=== PATIENT | male | born 1950 | race Caucasian/White ===

== ENCOUNTER 2021-10-08 11:54 | Inpatient (IN) ==
--- NOTE | 2021-10-08 12:17 | Emergency Department Note ---
Impression & Plan Cavitary pneumonia, Hyponatremia, Elevated troponin, Bronchiectasis, Asthma ED Provider Note NAME: PIETRO KUHN AGE: 71 SEX: M : 1950 ARRIVES VIA: Walk-In INFORMANT: Patient, ED PROVIDER(S): Kurt Arnett MD Chief Complaint: Shortness of breath, weakness, weight loss HPI: Patient does present with the above symptoms. The patient has had ongoing shortness of breath and weight loss. The patient is lost approximately 30 pounds in the last month. The patient has had 2 admissions at [facility] without significant improvement in symptoms. Patient was told that he may have an element of TB but does have a known history of lung disease. Patient denies any fevers or chills but has had productive cough. Patient describes the sputum as green-white. No recent incarceration or travel. Patient is vaccinated for COVID but not the flu. Patient was most recently to [facility] on October 03. Reportedly had right upper lobe pneumonia and was admitted from September 21 to the as well with associated hyponatremia. The patient was treated and discharged on Omnicef and doxycycline. Patient does have a known history of bronchiectasis and asthma. Patient did have a CT PE protocol completed which showed cavitary right upper lobe infiltrate. Patient denies any bloody cough or leg swelling. The patient does complain of HARRIS but no orthopnea. Patient did have negative viral panel as well. Patient has been trying to take his [id number] medications in addition to prescription medications but without significant improvement in symptoms. Patient states he was not told about any known history of malignancy. Patient denies any thyroid issues. The patient has been trying to hydrate as well as drink protein shakes but has not resulted in weight gain. ROS: See HPI for pertinent positives and negatives. A total of 10 systems were reviewed and otherwise negative. Past medical history: See below Surgical history: See below Social history: See below Physical Exam: GENERAL: Thin in appearance,NAD, wearing a mask, non-toxic. EYE EXAM: Normal conjunctiva. PERRL, no anisocoria and EOM's grossly intact w/o pain. NECK: Supple, no nuchal rigidity, no adenopathy, non-tender. No signs of meningismus. LUNGS: Rhonchi to the right chest, wheezing noted. Normal chest wall mechanics. HEART: NSR, no MRG. ABDOMEN: Abdomen soft, non-tender, normo-active bowel sounds, no masses, no rebound or guarding. BACK: No CVA TTP. SKIN: No rashes and no bruising. UPPER EXTREMITIES: Upper extremities are grossly normal. LOWER EXTREMITIES: Grossly normal, no edema. Negative Homans' sign bilaterally. NEURO EXAM: A&O x3, cranial nerves II-XII grossly intact, normal speech, moves all 4 extremities on command w/o issue. Differential diagnoses: Reactive airway disease, pneumonia, pneumothorax, COPD, CHF, infections, cardiac ischemia, pulmonary embolism, musculoskeletal, gas trointestinal, as well as other pathologies. Course: Patient was seen and evaluated the bedside. Full history physical exam was performed. EKG interpreted by me Sinus, rate of 94, normal intervals, left axis deviation, no obvious ST changes. Imaging Studies: See Below Cardiac monitoring: An order was placed for continuous cardiac monitoring. The monitor shows a rate of 92 with sinus rhythm. MDM: Patient was seen due to concern for weight loss and shortness of breath. The patient has had fairly extensive work-up for a cavitary lesion. Blood work today shows a normal white count with mild anemia hemoglobin 11.2. Thrombocytosis noted at 755. Patient does have hyponatremia at 125. Kidney function is unremarkable. Initial troponin detectable but the patient denies any chest pains. EKG with no obvious acute changes. The patient was ordered Zosyn after discussion with pharmacy. Nasal MRSA screen screen ordered along with COVID test. These are both negative. I did speak with the on-call hospitalist Evon Love PA-C and the patient was admitted to the medicine service by Dr. Stubbs Past Med/Surg History Medical History Asthma Barretts esophagus Bronchiectasis Cavitary pneumonia Generalized anxiety disorder Severe protein-energy malnutrition Surgical History H/O cataract extraction History of tonsillectomy Family History Denies family history of Lung disease Cancer Stroke Social History Smoking Status: Former smoker packs per day: 1.5; Years Smoked: 30; Hx Alcohol Use: Yes Alcohol type: beer Alcohol Intake Frequency: 2-3 x/Week Hx Substance Use: No Feels Safe at Home: Yes Allergies Allergies Allergy/AdvReac Type Severity Reaction Status Date / Time No Known Allergies Allergy Unverified 10/08/21 18:40 Home Meds Home Medications Medication Instructions Recorded Confirmed amoxicillin 875 mg-potassium 1 tab PO BID 10/08/21 10/08/21 clavulanate 125 mg tablet buspirone 7.5 mg tablet 7.5 mg PO BID 10/08/21 10/08/21 cyanocobalamin (vitamin B-12) 1,000 mcg PO DAILY 10/08/21 10/08/21 1,000 mcg tablet (Vitamin B-12) ferrous sulfate 325 mg (65 mg 325 mg PO DAILY 10/08/21 10/08/21 iron) tablet fluticasone furoate 200 1 inh INHALATION DAILY 10/08/21 10/08/21 mcg-vilanterol 25 mcg/dose inhalation powder (Breo Ellipta) magnesium 100 mg tablet 100 mg PO DAILY 10/08/21 10/08/21 omeprazole 20 mg capsule,delayed 20 mg PO DAILY 10/08/21 10/08/21 release potassium chloride 10 mEq 20 meq PO DAILY 10/08/21 10/08/21 tablet,extended release(part/cryst) (Klor-Con M) thiamine HCl (vitamin B1) 100 mg 100 mg PO DAILY 10/08/21 10/08/21 tablet urea 15 gram oral powder packet 1 packet PO BID 10/08/21 10/08/21 (Ure-Na) Results & Data (ED) Vital Signs Vital Signs - 24 hr 10/08/21 12:01 10/08/21 12:30 10/08/21 12:36 Temperature 36.6 C Temperature Source Temporal Artery Scan Pulse Rate 102 H 91 H Pulse Rate [Left Apical] Pulse Rhythm [Left Apical] Pulse Strength [Left Apical] Respiratory Rate 18 Respiratory Effort / Characteristics Non-Labored Non-Labored Spontaneous Respiratory Depth Normal Normal Respiratory Pattern Regular Blood Pressure 94/67 L Blood Pressure [Left Arm] Blood Pressure Mean 76 Blood Pressure Mean [Left Arm] Blood Pressure Position [Left Arm] Pulse Oximetry 97 95 Oxygen Delivery Method Room Air Room Air Sepsis Recent Fever Within 48 Hours No Sepsis New/Unexplained Change in Mental Status No Sepsis Action Taken by Nursing No Action Required 10/08/21 13:00 10/08/21 14:30 Temperature Temperature Source Pulse Rate 93 H Pulse Rate [Left Apical] 95 H Pulse Rhythm [Left Apical] Regular Pulse Strength [Left Apical] Normal Respiratory Rate 21 21 Respiratory Effort / Characteristics Non-Labored Spontaneous Respiratory Depth Normal Respiratory Pattern Regular Blood Pressure Blood Pressure [Left Arm] 108/61 Blood Pressure Mean Blood Pressure Mean [Left Arm] 76 Blood Pressure Position [Left Arm] Lying Pulse Oximetry 96 97 Oxygen Delivery Method Room Air Sepsis Recent Fever Within 48 Hours Sepsis New/Unexplained Change in Mental Status Sepsis Action Taken by Long-Term Medications Current Medication List: was personally reviewed by me Laboratory Data Attestation: I reviewed the patient's lab results. Result diagrams: 10/08/21 12:30 10/08/21 12:30 Lab Results 10/08/21 10/08/21 10/08/21 Range/Units 12:30 12:30 12:30 WBC 10.78 (4.8-10.8) K/uL RBC 3.76 L (4.7-6.1) M/uL Hgb 11.2 L (14.0-18.0) g/dL Hct 34.4 L (42-52) % MCV 91.5 (80-100) fL MCH 29.8 (25-34) pg MCHC 32.6 (32-36) g/dL RDW Std Deviation 43.3 (36.4-46.3) fL RDW Coeff of Susan 12.8 (11.5-14.5) % Plt Count 755 H (130-400) K/uL MPV 9.0 (7.4-10.4) fL Immature Gran % (Auto) 0.3 % Neut % (Auto) 75.9 % Lymph % (Auto) 15.4 % [place] % (Auto) 4.2 % Eos % (Auto) 3.5 % Baso % (Auto) 0.7 % Neut # (Auto) 8.18 H (1.4-6.5) K/uL Lymph # (Auto) 1.66 (1.2-3.4) K/uL [place] # (Auto) 0.45 (0.11-0.59) K/uL Eos # (Auto) 0.38 (0-0.5) K/uL Baso # (Auto) 0.08 (0-0.2) K/uL Immature Gran # (Auto) 0.03 H (0.00-0.02) K/uL Sodium 125 L (136-145) mmol/L Potassium 4.0 (3.5-5.1) mmol/L Chloride 90 L (98-107) mmol/L Carbon Dioxide 27 (21-32) mmol/L Anion Gap 8 (3-11) BUN 12 (6-23) mg/dl Creatinine 0.72 (0.6-1.4) mg/dl Est Cr Clr Drug Dosing 79.0 ml/min Est GFR ( Amer) 109.5 ml/min Est GFR (Non-Af Amer) 94.5 ml/min BUN/Creatinine Ratio 16.7 (10-20) Glucose 113 H (70-99(Fasting)) mg/dl Osmolality (280-300) mOsm/kg Lactate 1.4 (0.4-2.0) mmol/L Calcium 8.7 (8.5-10.1) mg/dl Total Bilirubin 0.4 (0.2-1.0) mg/dl AST 17 (13-39) U/L ALT 13 (7-52) U/L Alkaline Phosphatase 82 (34-104) U/L Troponin I 0.06 H* (0-0.04) ng/ml Total Protein 7.6 (6.0-8.3) gm/dl Albumin 3.2 L (3.4-5.0) gm/dl Globulin 4.4 H (2.5-4.0) gm/dl Albumin/Globulin Ratio 0.7 L (0.9-2) Procalcitonin (0-0.5) ng/ml Nasal Screen MRSA (PCR) (Negative) SARS-CoV-2, RNA, NAAT (NEGATIVE) 10/08/21 10/08/21 10/08/21 Range/Units 12:30 12:30 13:21 WBC (4.8-10.8) K/uL RBC (4.7-6.1) M/uL Hgb (14.0-18.0) g/dL Hct (42-52) % MCV (80-100) fL MCH (25-34) pg MCHC (32-36) g/dL RDW Std Deviation (36.4-46.3) fL RDW Coeff of Susan (11.5-14.5) % Plt Count (130-400) K/uL MPV (7.4-10.4) fL Immature Gran % (Auto) % Neut % (Auto) % Lymph % (Auto) % [place] % (Auto) % Eos % (Auto) % Baso % (Auto) % Neut # (Auto) (1.4-6.5) K/uL Lymph # (Auto) (1.2-3.4) K/uL [place] # (Auto) (0.11-0.59) K/uL Eos # (Auto) (0-0.5) K/uL Baso # (Auto) (0-0.2) K/uL Immature Gran # (Auto) (0.00-0.02) K/uL Sodium (136-145) mmol/L Potassium (3.5-5.1) mmol/L Chloride (98-107) mmol/L Carbon Dioxide (21-32) mmol/L Anion Gap (3-11) BUN (6-23) mg/dl Creatinine (0.6-1.4) mg/dl Est Cr Clr Drug Dosing ml/min Est GFR ( Amer) ml/min Est GFR (Non-Af Amer) ml/min BUN/Creatinine Ratio (10-20) Glucose (70-99(Fasting)) mg/dl Osmolality 271 L (280-300) mOsm/kg Lactate (0.4-2.0) mmol/L Calcium (8.5-10.1) mg/dl Total Bilirubin (0.2-1.0) mg/dl AST (13-39) U/L ALT (7-52) U/L Alkaline Phosphatase (34-104) U/L Troponin I (0-0.04) ng/ml Total Protein (6.0-8.3) gm/dl Albumin (3.4-5.0) gm/dl Globulin (2.5-4.0) gm/dl Albumin/Globulin Ratio (0.9-2) Procalcitonin 0.22 (0-0.5) ng/ml Nasal Screen MRSA (PCR) (Negative) SARS-CoV-2, RNA, NAAT NEGATIVE (NEGATIVE) 01/23/22 Range/Units 15:31 WBC (4.8-10.8) K/uL RBC (4.7-6.1) M/uL Hgb (14.0-18.0) g/dL Hct (42-52) % MCV (80-100) fL MCH (25-34) pg MCHC (32-36) g/dL RDW Std Deviation (36.4-46.3) fL RDW Coeff of Susan (11.5-14.5) % Plt Count (130-400) K/uL MPV (7.4-10.4) fL Immature Gran % (Auto) % Neut % (Auto) % Lymph % (Auto) % [place] % (Auto) % Eos % (Auto) % Baso % (Auto) % Neut # (Auto) (1.4-6.5) K/uL Lymph # (Auto) (1.2-3.4) K/uL [place] # (Auto) (0.11-0.59) K/uL Eos # (Auto) (0-0.5) K/uL Baso # (Auto) (0-0.2) K/uL Immature Gran # (Auto) (0.00-0.02) K/uL Sodium (136-145) mmol/L Potassium (3.5-5.1) mmol/L Chloride (98-107) mmol/L Carbon Dioxide (21-32) mmol/L Anion Gap (3-11) BUN (6-23) mg/dl Creatinine (0.6-1.4) mg/dl Est Cr Clr Drug Dosing ml/min Est GFR ( Amer) ml/min Est GFR (Non-Af Amer) ml/min BUN/Creatinine Ratio (10-20) Glucose (70-99(Fasting)) mg/dl Osmolality (280-300) mOsm/kg Lactate (0.4-2.0) mmol/L Calcium (8.5-10.1) mg/dl Total Bilirubin (0.2-1.0) mg/dl AST (13-39) U/L ALT (7-52) U/L Alkaline Phosphatase (34-104) U/L Troponin I (0-0.04) ng/ml Total Protein (6.0-8.3) gm/dl Albumin (3.4-5.0) gm/dl Globulin (2.5-4.0) gm/dl Albumin/Globulin Ratio (0.9-2) Procalcitonin (0-0.5) ng/ml Nasal Screen MRSA (PCR) Negative (Negative) SARS-CoV-2, RNA, NAAT (NEGATIVE) Administered Medications Discontinued Medications Sodium Chloride (Nss 1000ml) 1,000 mls @ 999 mls/hr IV .[id number] ONE Stop: 10/08/21 13:37 Last Infusion: 10/08/21 14:49 Dose: 0 mls/hr Documented by: [id number] Admin: 10/08/21 13:34 Dose: 999 mls/hr Documented by: [id number] Piperacillin Sod/Tazobactam Sod (Zosyn) 4.5 gm in 120 mls @ 240 mls/hr IV NOW ONE Stop: 10/08/21 15:24 Last Infusion: 10/08/21 15:57 Dose: 0 mls/hr Documented by: [id number] Admin: 10/08/21 15:27 Dose: 240 mls/hr Documented by: [id number] Imaging Data Radiologist's Impression: Chest X-Ray 10/08/21 12:36 XR chest 1V portable CLINICAL HISTORY: Dyspnea TECHNIQUE: Single frontal radiograph of the chest was obtained. Comparison: Comparison is made to CT chest 01/02/2016 FINDINGS: No lines and tubes are seen. The cardiomediastinal silhouette is normal. Right apical opacity is seen with underlying pleural thickening. No evidence of pleural effusion or pneumothorax. IMPRESSION: Right apical opacity with underlying pleural thickening favored to represent underlying mass or scarring. Correlation with history is recommended. If not previously evaluated, CT can be considered. ACT 112: Negative or not required by law. Electronically signed by: Gagan Maddox M.D. 10/08/2021 1:25 PM Discharge Plan Visit Data Chief Complaint: Shortness of Breath/Dyspnea Stated Complaint: SOB,WEAKNESS,NOT EATING ED Provider: Kurt Arnett Discharge Problem: Cavitary pneumonia, Hyponatremia, Elevated troponin, Bronchiectasis, Asthma Patient Disposition: Admitted As Inpatient Discharge Instructions Interventions: ED Discharge Assessment Last Done: 10/08/21 18:20
[2021-10-08] MEDS ORDERED: SODIUM CHLORIDE 0.9% 1000ML 1,000 ML IV ONE (12:37)
[2021-10-08 12:45] LABS: Hematocrit (blood only) 34.4 % (42-52); Hemoglobin 11.2 g/dL (14.0-18.0); Mean Corpuscular Hemoglobin 29.8 pg (25-34); Mean Corpuscular Hgb Conc 32.6 g/dL (32-36); Mean Corpuscular Volume 91.5 fL (80-100); Platelet Count 755 K/uL (130-400); RDW Coefficient of Variation 12.8 % (11.5-14.5); RDW Standard Deviation 43.3 fL (36.4-46.3); Red Blood Count 3.76 M/uL (4.7-6.1); White Blood Count 10.78 K/uL (4.8-10.8)
[2021-10-08 13:11] LABS: Basophils # (auto) 0.08 K/uL (0-0.2); Basophils % (auto) 0.7 %; Eosinophils # (auto) 0.38 K/uL (0-0.5); Eosinophils % (auto) 3.5 %; Immature Granulocytes # (auto) 0.03 K/uL (0.00-0.02); Immature Granulocytes % (auto) 0.3 %; Lymphocytes # (auto) 1.66 K/uL (1.2-3.4); Lymphocytes % (auto) 15.4 %; Monocytes # (auto) 0.45 K/uL (0.11-0.59); Monocytes % (auto) 4.2 %; Neutrophils # (auto) 8.18 K/uL (1.4-6.5); Neutrophils % (auto) 75.9 %
[2021-10-08 13:27] LABS: Troponin I 0.06 ng/ml (0-0.04)
--- NOTE | 2021-10-08 13:27 | XRay Report ---
XR chest 1V portable CLINICAL HISTORY: Dyspnea TECHNIQUE: Single frontal radiograph of the chest was obtained. Comparison: Comparison is made to CT chest 01/02/2016 FINDINGS: No lines and tubes are seen. The cardiomediastinal silhouette is normal. Right apical opacity is seen with underlying pleural thickening. No evidence of pleural effusion or pneumothorax. IMPRESSION: Right apical opacity with underlying pleural thickening favored to represent underlying mass or scarr ing. Correlation with history is recommended. If not previously evaluated, CT can be considered. ACT 112: Negative or not required by law. Electronically signed by: Gagan Maddox M.D. 10/08/2021 1:25 PM
[2021-10-08 13:36] LABS: Albumin Globulin Ratio 0.7 (0.9-2); Albumin Level 3.2 gm/dl (3.4-5.0); BUN Creatinine Ratio 16.7 (10-20); Bilirubin,Total 0.4 mg/dl (0.2-1.0); Calcium 8.7 mg/dl (8.5-10.1); Est GFR (African American) 109.5 ml/min; Est GFR (Non-African American) 94.5 ml/min; Globulin 4.4 gm/dl (2.5-4.0); Total Protein 7.6 gm/dl (6.0-8.3)
[2021-10-08] MEDS ORDERED: PIPERACILLIN/TAZOBACTAM 4.5 GM/120 ML BAG IV ONE (14:55)
[2021-10-08] MEDS ORDERED: PIPERACILL/TAZOBAC CONSULT ACTIVE PRN (14:55)
--- NOTE | 2021-10-08 15:13 | History & Physical Report ---
Date of Service October 08, 2021 Assessment & Plan (1) Cavitary pneumonia: Plan: This is a 71yo M with a PMH of moderate persistent asthma, bronchiectasis, GERD, elevated IgE who presents today with SOB and continued sputum production with 3rd admission within this month for RUL cavitary pneumonia. Recently admitted twice to [facility] for SOB, green sputum production and hyponatremia - found to have RUL pneumonia showing progressive cavitary lesion CT chest with con from 10/03/20 showing cavitated infiltrates in the apical right upper lobe is somewhat further increased from prior. No evidence of PE Evaluated by Dr. Ramírez (pulm) - ddx non-bacterial pneumonia or non- infectious PNA, at risk for mycoplasma infection such as tuberculosis or AFB, fungal infections including cryptococcus, blastomycosis or histoplasmosis along with inflammatory conditions such as ANCA vasculitis or other inflammatory conditions such as lupus/rheumatoid arthritis Work up so far- Negative cryptococcal ag Histoplasmosis and blastomycosis labs still pending Preliminary AFB from 10/05 and 10/07 negative Lung culture with normal larry (10/05) ANCA, BRENDON negative but CCP and RF positive - Was reviewed by Rheum at [facility] who recommend outpt f/u. CCP was only mildly elevated Bronchoscopy with tissue diagnosis suggested but not performed during admission until TB ruled out Blood cultures drawn today, procal pending. 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 Fluid restriction of 1.5 L, continue urea packets BID Serum osm, urine osm, urine Na ordered Daily BMP (5) Elevated troponin: Plan: Initial troponin elevated at 0.06. No chest pain or acute ST changes on ECG. Continue to trend troponin (6) Severe protein-energy malnutrition: Plan: Weight is 58.5kg, 20 lb weight loss in past month per patient. Continue Boost shakes TID, encouraged PO intake (7) Generalized anxiety disorder: Plan: Continue Buspar (8) Barretts esophagus: Plan: Following with GI, continue PPI, due for OP EGD in Oct 2021 DVT Ppx: SQ heparin Code status: FULL PCP: ROGE Martinez Dispo: Adm med/surg Patient seen in collaboration with Dr. Graham. Please see addendum. History of Present Illness Chief Complaint: SOB, sputum production, weight loss Primary Care Provider: NO PCP This is a 71yo M with a PMH of moderate persistent asthma, bronchiectasis, GERD, elevated IgE who presents today with SOB and continued sputum production. Was admitted twice at [facility] over the past month for RUL pneumonia showing progressive cavitary lesion, discharged home 3 days ago on Augmentin BID. CT chest with con from 10/03/20 showing cavitated infiltrates in the apical right upper lobe is somewhat further increased from prior. No evidence of PE. Patient was seen by pulm service there and Dr. Ramírez was suspicious of a non- bacterial pneumonia or non-infectious PNA, with patient at risk for mycoplasma infection such as tuberculosis or AFB, fungal infections including cryptococcus, blastomycosis or histoplasmosis along with inflammatory conditions such as ANCA vasculitis or other inflammatory conditions such as lupus/rheumatoid arthritis. Bronchoscopy with tissue diagnosis suggested but not performed during admission until TB ruled out. No risk factors such as previous TB, travel or incarceration. Resulting lab work from recent admission show negative cr yptococcal ag, with histoplasmosis and blastomycosis labs still pending. Preliminary AFB from 10/05 and 10/07 negative- due for one more. Procal negative, lung culture with normal larry. ANCA, BRENDON negative but CCP and RF positive. [place] that rheum levels may be reactive in setting of lung infection. 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 Treated with fluid restriction of 1.5 L and urea 15g BID. Was discharged home from [facility] 3 days ago and started to feel worse again yesterday morning with increased SOB, green sputum production, chest tightness and intermittent wheezing. Denies any fever, chills, CP, hemoptysis. Continues to have poor appetite and endorses 20 pound weight loss in the past month. Has been drinking protein shakes 4-5x/day. No dysuria, diarrhea or constipation. Home Medications Medication Instructions Recorded Confirmed Type amoxicillin 875 mg-potassium 1 tab PO BID 10/08/21 10/08/21 History clavulanate 125 mg tablet buspirone 7.5 mg tablet 7.5 mg PO BID 10/08/21 10/08/21 History cyanocobalamin (vitamin B-12) 1,000 mcg PO DAILY 10/08/21 10/08/21 History 1,000 mcg tablet (Vitamin B-12) ferrous sulfate 325 mg (65 mg 325 mg PO DAILY 10/08/21 10/08/21 History iron) tablet fluticasone furoate 200 1 inh INHALATION DAILY 10/08/21 10/08/21 History mcg-vilanterol 25 mcg/dose inhalation powder (Breo Ellipta) magnesium 100 mg tablet 100 mg PO DAILY 10/08/21 10/08/21 History omeprazole 20 mg capsule,delayed 20 mg PO DAILY 10/08/21 10/08/21 History release potassium chloride 10 mEq 20 meq PO DAILY 10/08/21 10/08/21 History tablet,extended release(part/cryst) (Klor-Con M) thiamine HCl (vitamin B1) 100 mg 100 mg PO DAILY 10/08/21 10/08/21 History tablet urea 15 gram oral powder packet 1 packet PO BID 10/08/21 10/08/21 History (Ure-Na) Past Med/Surg History Medical History (Updated 10/08/21 @ 17:16 by Evon Love PA-C) Asthma Barretts esophagus Bronchiectasis Cavitary pneumonia Generalized anxiety disorder Severe protein-energy malnutrition Surgical History H/O cataract extraction History of tonsillectomy Family History Denies family history of Lung disease Cancer Stroke Social History Smoking Status: Former smoker packs per day: 1.5; Years Smoked: 30; Hx Alcohol Use: Yes Alcohol type: beer Alcohol Intake Frequency: 2-3 x/Week Hx Substance Use: No Feels Safe at Home: Yes Review of Systems Review of Systems: At least ten systems reviewed and negative except as noted in the HPI. Physical Exam Physical Exam: Please see Dr. Graham's addendum for physical exam. Results & Data Results & Data ([facility]) Vital Signs (Past 12 Hours) Vital Signs Temp Pulse Pulse Resp BP BP Pulse Ox 10/08/21 14:30 95 H 21 108/61 97 10/08/21 13:00 93 H 21 96 10/08/21 12:36 91 H 95 10/08/21 12:01 36.6 C 102 H 18 94/67 L 97 Laboratory Results Short CBC 10/08/21 Range/Units 12:30 WBC 10.78 (4.8-10.8) K/uL Hgb 11.2 L (14.0-18.0) g/dL Hct 34.4 L (42-52) % Plt Count 755 H (130-400) K/uL BMP 10/08/21 12:30 Sodium 125 L Potassium 4.0 Chloride 90 L Carbon Dioxide 27 BUN 12 Creatinine 0.72 Glucose 113 H Calcium 8.7 Cardiac Enzymes 10/08/21 Range/Units 12:30 Troponin I 0.06 H* (0-0.04) ng/ml Liver Function 10/08/21 Range/Units 12:30 Total Bilirubin 0.4 (0.2-1.0) mg/dl AST 17 (13-39) U/L ALT 13 (7-52) U/L Alkaline Phosphatase 82 (34-104) U/L Albumin 3.2 L (3.4-5.0) gm/dl Diagnostic Findings Chest X-Ray 10/08/21 12:36 XR chest 1V portable CLINICAL HISTORY: Dyspnea TECHNIQUE: Single frontal radiograph of the chest was obtained. Comparison: Comparison is made to CT chest 01/02/2016 FINDINGS: No lines and tubes are seen. The cardiomediastinal silhouette is normal. Right apical opacity is seen with underlying pleural thickening. No evidence of pleural effusion or pneumothorax. IMPRESSION: Right apical opacity with underlying pleural thickening favored to represent underlying mass or scarring. Correlation with history is recommended. If not previously evaluated, CT can be considered. ACT 112: Negative or not required by law. Electronically signed by: Gagan Maddox M.D. 10/08/2021 1:[address] Pulmonary Embolus with contrast (from [facility] 10/03/20) Impression: No evidence of pulmonary embolism. 2. Cavitated infiltrates in the apical right upper lobe is somewhat further increased from prior. Differential diagnosis includes cavitary pneumonia, tuberculosis, other mycobacterial infection, aspergillosis, less likely cavitated neoplasm. Bronchoscopy with tissue diagnosis is suggested. 3. Other infiltrates scattered in the remainder of the lungs are relatively stable. 4. Development of a few subcentimeter sclerotic foci in the cervicothoracic spine. Sclerotic/osteoblastic metastasis are not excluded. Further evaluation with nuclear medicine bone scan should to be considered. ECG Additional Comments: Sinus rhythm with marked sinus arrhythmia Supervising Physician Co-Signing Physician Notes History and physical exam performed by me as detailed by Evon Love's PA-C. History notable for 71-year-old man with recurrent hospitalization at [facility] for pneumonia twice within this month, recently discharged 3 days ago where he was managed for cavitary right upper lobe pneumonia and hyponatremia. Patient reported feeling little bit better at home though continued to have cough but started having increasing productive cough and shortness of breath yesterday and shortness of breath worse with activity associated with occasional chest tightness and some wheezing. Denied any fevers. Reports over 20 pound weight loss within the month. Reports poor oral intake Denied travel abroad, incarceration, previous TB or TB contact Physical exam notable for cough, transmitted sounds in right upper lobe, scattered rhonchi. General: Thin man, no acute distress Eyes: PERRL, conjunctivae normal, not pale, anicteric sclerae, EOM intact bilaterally ENMT: External ear and nose normal, oropharynx normal Respiratory: Normal respiratory effort, no respiratory distress, cough, transmitted sounds in right upper lobe, scattered rhonchi. Cardiovascular: RRR S1 S2 Gastrointestinal (Abdomen): Abdomen is not distended, soft, non-tender to palpation, no guarding, no palpable hepatosplenomegaly, normal bowel sounds Musculoskeletal: No cyanosis or clubbing, all extremities motor strength 5/5 Neurologic: Alert and oriented x 3, No focal weakness, sensation grossly intact Psychiatric: Alert and oriented x 3, euthymic affect, no depressed affect Lab notable for hemoglobin of 11.2, platelet of 755, sodium of 125, serum osmolality of 271, troponin of 0.06, negative COVID test, procalcitonin of 0.22 Chest x-ray showed right apical opacity. Reviewed recent CT chest at [facility] on epic Patient noted to have cavitary lesion on CT Was evaluated by pulm. AFB on 10/05 and 10/07 negative so far. Procal on 10/05/21 at [facility] was 0.22 Continue zosyn for now Sputum cx Continue nebs Will appreciate pulm evaluation. Patient may need a bronch in the future (inpt vs outpt) Agree with other plans as detailed by Evon Love PA-C
--- NOTE | 2021-10-08 17:29 | Communication Note ---
Date of Service: October 08, 2021 History and physical exam performed by me as detailed by Evon Love's PA-C. History notable for 71-year-old man with recurrent hospitalization at [facility] for pneumonia twice within this month, recently discharged 3 days ago where he was managed for cavitary right upper lobe pneumonia and hyponatremia. Patient reported feeling little bit better at home though continued to have cough but started having increasing productive cough and shortness of breath yesterday and shortness of breath worse with activity associated with occasional chest tightness and some wheezing. Denied any fevers. Reports over 20 pound weight loss within the month. Reports poor oral intake Denied travel abroad, incarceration, previous TB or TB contact Physical exam notable for cough, transmitted sounds in right upper lobe, scattered rhonchi. Lab notable for hemoglobin of 11.2, platelet of 755, sodium of 125, serum osmolality of 271, troponin of 0.06, negative COVID test, procalcitonin of 0.22 Chest x-ray showed right apical opacity. Reviewed recent CT chest at [facility] on epic Patient noted to have cavitary lesion on CT Was evaluated by pulm. AFB on 10/05 and 10/07 negative so far. Procal on 10/05/21 at [facility] was 0.22 Continue zosyn for now Sputum cx Continue nebs Will appreciate pulm evaluation. Patient may need a bronch in the future (inpt vs outpt) Agree with other plans as detailed by Evon Love PA-C
[2021-10-08 17:51] LABS: Appearance Urine Clear (Clear); Bacteria Urine Automated Negative (Negative); Bilirubin Urine Negative (Negative); Blood Urine 2+ (Negative); Cast Urine Automated 0 /lpf (0-5); Color Urine Yellow; Glucose Urine UA Negative (Negative); Ketones Urine Negative (Negative); Leukocyte Esterase Urine Negative (Negative); Nitrite Urine Negative (Negative); Protein Urine Negative (Negative); RBC Urine Automated >30 /hpf (0-4); Urobilinogen Urine Negative (Negative); pH Urine >= 9.0 (4.5-7.5)
[2021-10-08] MEDS ORDERED: POLYETHYLENE (MIRALAX) 17 GM PACK PO PRN (18:19)
[2021-10-08] MEDS ORDERED: ONDANSETRON INJ 2 MG/ML 2 ML VIAL IV PRN (18:19)
[2021-10-08] MEDS ORDERED: ACETAMINOPHEN 325 MG TAB PO PRN (18:19)
[2021-10-08] MEDS ORDERED: PATIENT'S ALLERGY INFO NEEDS ENTERED SCH (18:30)
--- NOTE | 2021-10-08 20:28 | Electrocardiogram Report ---
Test Reason : Blood Pressure : / mmHG Vent. Rate : 094 BPM Atrial Rate : 094 BPM P-R Int : 158 ms QRS Dur : 082 ms QT Int : 342 ms P-R-T Axes : 081 -18 068 degrees QTc Int : 427 ms Sinus rhythm with PACs No previous ECGs available Confirmed by Marcelo Carlin ([id number]) on 10/08/2021 8:28:05 PM Referred By: REFERRED SELF Confirmed By:Mathew Carlin
[2021-10-08] MEDS: PIPERACILLIN/TAZOBACTAM 3.375 GM in DEXTROSE 5% 100 ML IV SCH (20:42)
[2021-10-08] MEDS: UREA (UREA-NA) 15 GM PACK PO SCH (20:46)
[2021-10-08] MEDS: busPIRone 7.5 MG TAB PO SCH (20:46)
[2021-10-08] MEDS: HEPARIN SOD 5,000 UNIT/0.5 ML VIAL SQ SCH (20:48)
[2021-10-09] MEDS: PIPERACILLIN/TAZOBACTAM 3.375 GM in DEXTROSE 5% 100 ML IV SCH ×3 (04:08→21:11)
[2021-10-09 06:02] LABS: Hemoglobin 10.3 g/dL (14.0-18.0); Mean Corpuscular Hemoglobin 29.8 pg (25-34); Mean Corpuscular Hgb Conc 33.2 g/dL (32-36); Mean Corpuscular Volume 89.6 fL (80-100); Mean Platelet Volume 8.9 fL (7.4-10.4); Platelet Count 610 K/uL (130-400); RDW Coefficient of Variation 12.9 % (11.5-14.5); RDW Standard Deviation 42.1 fL (36.4-46.3); Red Blood Count 3.46 M/uL (4.7-6.1)
[2021-10-09 06:15] LABS: BUN Creatinine Ratio 25.8 (10-20); Calcium 8.3 mg/dl (8.5-10.1); Creatinine Clr Calc Pharmacy 88.1 ml/min; Est GFR (African American) 116.5 ml/min; Est GFR (Non-African American) 100.5 ml/min; Potassium 3.7 mmol/L (3.5-5.1)
--- NOTE | 2021-10-09 08:13 | Pulmonary Consultation ---
Date of Consultation October 09, 2021 Assessment & Plan (1) Cavitary pneumonia: (2) Asthma: Asthma complication type: with acute exacerbation Asthma persistence: persistent Asthma severity: mild Qualified Code(s): J45.31 - Mild persistent asthma with (acute) exacerbation (3) Bronchiectasis: Bronchiectasis type: with acute exacerbation Qualified Code(s): J47.1 - Bronchiectasis with (acute) exacerbation 71-year-old male with past medical history of moderate persistent asthma, bronchiectasis, GERD who came in with shortness of breath and productive cough, currently admitted for the third time within a month for right upper lobe cavitary pneumonia. Cavitary pneumonia - Continue empiric Zosyn - Follow AFB and sputum culture results - Follow [facility] histoplasmosis and blastomycosis results - Could possibly be aspergillosis as well - Plan for bronchoscopy today Asthma -Continue Breo Ellipta -Continue rescue inhaler as needed Thank you for allowing us to participate in the care of this patient. Please ref er to Dr. Worley's attestation for further information. Supervising Physician Co-Signing Physician Notes Patient seen and examined with resident physician. Agree with assessment and plan aside for any additions/exceptions noted. History is relevant for [id number] smoking history. He quit 40 years ago. He lost 20 pounds of weight over the past month. He notes increasing shortness of breath and cough with productive sputum. Patient with a large right upper lobe cavitary lesion. Seen by [facility] pulmonology recently. I performed a bronchoscopy today with washings, brushings and biopsies of the right upper lobe. Will await results. Differential includes inflammatory lung disease, malignancy and chronic infection such as nontuberculous mycobacteria. Continue Zosyn. Nasal MRSA negative. Physical exam Constitutional: Thin and frail appearing male no apparent distress. Eyes: Pupils are equal round and reactive to light. Conjunctivae are normal. Anicteric sclera. Ears nose, mouth and throat: Mallampati class 2. Normal posterior oropharynx. Uvula is midline. Neck: Trachea is midline. Visual inspection is normal. Respiratory: Coarse breath sounds the right upper lobe. Prolonged phase of exhalation. Cardiovascular: Regular rate and rhythm. No murmurs. No edema. Gastrointestinal: Normal bowel sounds, soft, nontender and nondistended. No hepatosplenomegaly noted. Musculoskeletal: No cyanosis. Patient is able to move all extremities. Skin: No rashes, warm dry and intact. Neurologic: No obvious focal neurological deficits seen. Psychiatric: Alert and oriented x3 with a euthymic affect. History of Present Illness Attending Physician: Miladis Graham MD History of Present Illness Renetta is a 71-year-old male with PMH of Moderate persistent asthma, bronchiectasis, GERD, recurrent hospitalizations to [facility] due to respiratory symptoms who presented with continued shortness of breath and sputum production. This is his third admission within a month for a right upper lobe cavitary pneumonia. Last discharged from [facility] on 10/05/2021 with Augmentin twice daily. Per chart review, patient had 2 CT chests at [facility] showing cavitary lesion of RUL, had increased in size on the second chest CT on 10/03/2021. Thus far has had work-up significant for negative cryptococcal antigen, prelim AFB 10/05 and 10/07 -, lung culture with normal larry on 10/05, negative ANCA and BRENDON, positive CCP and RF. Histoplasmosis and blastomycosis labs pending. Rheumatology evaluated at [facility] due to negative ANCA and BRENDON but positive CCP and RF, recommended outpatient follow-up. So far during this admission, patient has negative Gram stain of sputum with sputum culture pending. AFB smear and culture pending. Chest x-ray showed right apical opacity with underlying pleural thickening favored to represent underlying mass or scarring. White count normal, afebrile. COVID-19 negative. Patient today reports that he has continued shortness of breath and gets significantly so with minimal exertion. He reports that he continues to cough, especially when exerting himself. Reports weight loss of 20 pounds in the past month. Of note, he does have a history of asthma and reports that he has an albuterol rescue inhaler and uses this 3-4 times a day. Also has daily fluticasone/Vilanterol inhaler. Additionally, patient has extensive smoking history, quit 40 years ago. Allergies Allergy/AdvReac Type Severity Reaction Status Date / Time No Known Allergies Allergy Unverified 10/08/21 18:40 Home Medications Medication Instructions Recorded Confirmed Type amoxicillin 875 mg-potassium 1 tab PO BID 10/08/21 10/08/21 History clavulanate 125 mg tablet buspirone 7.5 mg tablet 7.5 mg PO BID 10/08/21 10/08/21 History cyanocobalamin (vitamin B-12) 1,000 mcg PO DAILY 10/08/21 10/08/21 History 1,000 mcg tablet (Vitamin B-12) ferrous sulfate 325 mg (65 mg 325 mg PO DAILY 10/08/21 10/08/21 History iron) tablet fluticasone furoate 200 1 inh INHALATION DAILY 10/08/21 10/08/21 History mcg-vilanterol 25 mcg/dose inhalation powder (Breo Ellipta) magnesium 100 mg tablet 100 mg PO DAILY 10/08/21 10/08/21 History omeprazole 20 mg capsule,delayed 20 mg PO DAILY 10/08/21 10/08/21 History release potassium chloride 10 mEq 20 meq PO DAILY 10/08/21 10/08/21 History tablet,extended release(part/cryst) (Klor-Con M) thiamine HCl (vitamin B1) 100 mg 100 mg PO DAILY 10/08/21 10/08/21 History tablet urea 15 gram oral powder packet 1 packet PO BID 10/08/21 10/08/21 History (Ure-Na) Patient History Medical History Asthma Barretts esophagus Bronchiectasis Cavitary pneumonia Generalized anxiety disorder Severe protein-energy malnutrition Surgical History H/O cataract extraction History of tonsillectomy Family History Denies family history of Lung disease Cancer Stroke Social History Smoking Status: Former smoker packs per day: 1.5; Years Smoked: 30; Second Hand Exposure: Yes; Do You Dip or Chew Tobacco: No; Hx Alcohol Use: Yes Alcohol type: beer Alcohol Intake Frequency: 2-3 x/Week Hx Substance Use: No Preferred Language: Croatian Pantograph Operator Required: No Beliefs That Will Affect Care: None Current Living Situation: Significant Other Other Information That Helps Us Care for You: No Feels Safe at Home: Yes Safety Concerns: Feels Safe At This Time Assistive Devices: Cane Review of Systems Review of Systems: Denies fever, chills, nausea, vomiting, abdominal pain, chest pain, palpitations, hemoptysis, weakness, numbness, headache, dizziness. Physical Exam Physical Exam: GENERAL: A&Ox3. NAD. HEENT: PERRL, EOMI. Moist mucous membranes. NECK: No JVD. No lymphadenopathy. CHEST/LUNGS: Wheezes bilateral bases. No increased WOB. No crackles, rales, rhonchi. HEART: RRR. No m/g/r. EXTREMITIES: No cyanosis, no clubbing, no edema SKIN: Warm and dry. No rashes or lesions. PSYCHIATRIC: Euthymic affect, no SI, no pressured speech, no hallucinations NEUROLOGIC: No FND. Results & Data Results & Data ([facility]) Vital Signs (Past 12 Hours) Vital Signs Temp Pulse Pulse Resp BP Pulse Ox 10/09/21 07:46 36.8 C 91 H 20 115/69 95 10/09/21 00:00 68 10/08/21 23:36 37.7 C H 90 16 113/62 93 Resident Activity Tracking Resident Involvement: Resident Care Provided Care Provided: Adult Hospital Medicine
[2021-10-09] MEDS ORDERED: NON-FORMULARY MEDICATION (Magnesium 100 mg Tablet) PO SCH (09:00)
[2021-10-09] MEDS: CYANOCOBALAMIN 500 MCG TABLET (VITAMIN B-12) PO SCH (09:45)
[2021-10-09] MEDS: POTASSIUM CHLORIDE CRTAB 20 MEQ TABCR PO SCH (09:45)
[2021-10-09] MEDS: HEPARIN SOD 5,000 UNIT/0.5 ML VIAL SQ SCH ×2 (09:45→21:12)
[2021-10-09] MEDS: THIAMINE HCL 100 MG TAB PO SCH (09:45)
[2021-10-09] MEDS: UREA (UREA-NA) 15 GM PACK PO SCH ×2 (09:45→21:13)
[2021-10-09] MEDS: PANTOprazole 40 MG TAB PO SCH (09:45)
[2021-10-09] MEDS: FERROUS SULFATE 325 MG TAB PO SCH (09:45)
[2021-10-09] MEDS: busPIRone 7.5 MG TAB PO SCH ×2 (09:45→21:12)
--- NOTE | 2021-10-09 10:49 | Hospitalist Progress Note ---
Date of Service October 09, 2021 Assessment & Plan (1) Cavitary pneumonia: Plan: 71yo M with a PMH of moderate persistent asthma, bronchiectasis, GERD, elevated IgE who presents today with SOB and continued sputum production with 3rd admission within this month for RUL cavitary pneumonia. Recently admitted twice to [facility] for SOB, green sputum production and hyponatremia - found to have RUL pneumonia showing progressive cavitary lesion CT chest with con from 10/03/20 showing cavitated infiltrates in the apical right upper lobe is somewhat further increased from prior. No evidence of PE Evaluated by Dr. Ramírez (pulm) - ddx non-bacterial pneumonia or non-infec tious PNA, at risk for mycoplasma infection such as tuberculosis or AFB, fungal infections including cryptococcus, blastomycosis or histoplasmosis along with inflammatory conditions such as ANCA vasculitis or other inflammatory conditions such as lupus/rheumatoid arthritis Work up so far- Negative cryptococcal ag Histoplasmosis and blastomycosis labs still pending Preliminary AFB from 10/05 and 10/07 negative Lung culture with normal larry (10/05) ANCA, BRENDON negative but CCP and RF positive - Was reviewed by Rheum at [facility] who recommend outpt f/u. 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 Fluid restriction of 1.5 L, continue urea packets BID Serum osm, urine osm suggest SIADH Currently NPO for bronch Once able to eat, will continue fluid restriction Nephro on board (5) Elevated troponin: Plan: Initial troponin elevated at 0.06. No chest pain or acute ST changes on ECG. (6) Severe protein-energy malnutrition: Plan: Weight is 58.5kg, 20 lb weight loss in past month per patient. Continue Boost shakes TID, encouraged PO intake Nutrition recs appreciated (7) Generalized anxiety disorder: Plan: Continue Buspar (8) Barretts esophagus: Plan: Following with GI, continue PPI, due for OP EGD in Oct 2021 DVT Ppx: SQ heparin Code status: FULL PCP: ROGE Martinez Dispo: Adm med/surg . Admission and Anticipated Discharge Date Admission Date: October 08, 2021 Subjective Patient seen and examined Reports productive cough and exertional dyspnea Denied chest pain, palpitations Denied fevers, chills Denied nausea, vomiting, abd pain, diarrhea Denied dysuria, freq, urgency Physical Exam Constitutional: Thin elderly man in no distress Eyes: PERRL, conjunctivae normal, anicteric sclerae ENMT: external ear and nose normal, oropharynx normal Respiratory: On room air, no respiratory distress, scattered wheeze, no crackles Cardiovascular: Rate/Rhythm: regular rate and regular rhythm S1 S2 Gastrointestinal (Abdomen): normal bowel sounds, soft, nontender, no hepatosplenomegaly Musculoskeletal: no cyanosis or clubbing, extremities motor strength 5/5 Neurologic: PERRL, EOMI, accommodation nl, no face palsy, no dysarthria Psychiatric: A+Ox3, euthymic affect Results & Data Results & Data ([facility]) Vital Signs (Past 12 Hours) Vital Signs Temp Pulse Pulse Resp BP Pulse Ox 10/09/21 07:46 36.8 C 91 H 20 115/69 95 10/09/21 00:00 68 10/08/21 23:36 37.7 C H 90 16 113/62 93 Laboratory Results Abnormal lab results 10/08/21 10/08/21 10/08/21 Range/Units 12:30 17:37 18:37 RBC (4.7-6.1) M/uL Hgb (14.0-18.0) g/dL Hct (42-52) % Plt Count (130-400) K/uL Sodium (136-145) mmol/L Chloride (98-107) mmol/L Creatinine (0.6-1.4) mg/dl BUN/Creatinine Ratio (10-20) Glucose (70-99(Fasting)) mg/dl Osmolality 271 L (280-300) mOsm/kg Calcium (8.5-10.1) mg/dl Troponin I 0.05 H* (0-0.04) ng/ml Urine pH >= 9.0 H (4.5-7.5) Urine Blood 2+ H (Negative) Urine RBC (Auto) >30 H (0-4) /hpf U Epithel Cells (Auto) 10-20 H (0-5) /lpf 10/09/21 10/09/21 10/09/21 Range/Units 00:24 05:38 05:38 RBC 3.46 L (4.7-6.1) M/uL Hgb 10.3 L (14.0-18.0) g/dL Hct 31.0 L (42-52) % Plt Count 610 H (130-400) K/uL Sodium 126 L (136-145) mmol/L Chloride 94 L (98-107) mmol/L Creatinine (0.6-1.4) mg/dl BUN/Creatinine Ratio 25.8 H (10-20) Glucose 112 H (70-99(Fasting)) mg/dl Osmolality (280-300) mOsm/kg Calcium 8.3 L (8.5-10.1) mg/dl Troponin I 0.05 H* (0-0.04) ng/ml Urine pH (4.5-7.5) Urine Blood (Negative) Urine RBC (Auto) (0-4) /hpf U Epithel Cells (Auto) (0-5) /lpf 10/09/21 Range/Units 11:06 RBC (4.7-6.1) M/uL Hgb (14.0-18.0) g/dL Hct (42-52) % Plt Count (130-400) K/uL Sodium 125 L (136-145) mmol/L Chloride 93 L (98-107) mmol/L Creatinine 0.58 L (0.6-1.4) mg/dl BUN/Creatinine Ratio 34.5 H (10-20) Glucose 104 H (70-99(Fasting)) mg/dl Osmolality (280-300) mOsm/kg Calcium 8.4 L (8.5-10.1) mg/dl Troponin I (0-0.04) ng/ml Urine pH (4.5-7.5) Urine Blood (Negative) Urine RBC (Auto) (0-4) /hpf U Epithel Cells (Auto) (0-5) /lpf (1) Asthma Asthma complication type: with acute exacerbation Asthma persistence: persistent Asthma severity: mild Qualified Code(s): J45.31 - Mild persistent asthma with (acute) exacerbation (2) Bronchiectasis Bronchiectasis type: with acute exacerbation Qualified Code(s): J47.1 - Bronchiectasis with (acute) exacerbation
[2021-10-09] MEDS: FLUTICASONE/VILANTEROL 200/25MCG 14 PUFFS/INHALER INH SCH (11:03)
[2021-10-09 11:25] LABS: INR 1.1 (0.9-1.1); Prothrombin Time 11.5 Seconds (9.0-12.0)
[2021-10-09] MEDS ORDERED: MIDAZOLAM HCL 5 MG/ML 1 ML VIAL ONE (11:42)
[2021-10-09] MEDS ORDERED: fentaNYL citrate 100 MCG/2 ML VIAL ONE (11:43)
--- NOTE | 2021-10-09 11:53 | History & Physical Bridge Note ---
Date of Service October 09, 2021 History & Physical Bridge Note I have examined the patient, reviewed the History & Physical and in the interval since the performance of the History & Physical I have noted the following changes of clinical significance: no changes noted
--- NOTE | 2021-10-09 11:53 | Pre Anesthesia Assessment ---
Date of Service October 09, 2021 Pre Sedation Assessment Vital Signs Temp Pulse Pulse Pulse Resp BP BP 10/09/21 07:46 36.8 C 91 H 20 115/69 10/09/21 00:00 68 10/08/21 23:36 37.7 C H 90 16 113/62 10/08/21 20:06 36.9 C 100 H 18 109/67 10/08/21 19:50 105 H 10/08/21 18:19 37 C 100 H 18 120/84 10/08/21 14:30 95 H 21 108/61 10/08/21 13:00 93 H 21 10/08/21 12:36 91 H 10/08/21 12:01 36.6 C 102 H 18 94/67 L Pulse Ox 10/09/21 07:46 95 10/09/21 00:00 10/08/21 23:36 93 10/08/21 20:06 93 10/08/21 19:50 10/08/21 18:19 96 10/08/21 14:30 97 10/08/21 13:00 96 10/08/21 12:36 95 10/08/21 12:01 97 Pre-Sedation Airway Assessment Smoking Status: Former smoker Hx Sleep Apnea: No Short, Thick Neck: No Thyromental Distance: > or= 3.5 Finger Breadths Oral Cavity: + WNL Mallampati Class: III ASA: ASA3 NPO Status Date of Last Intake of Fluids: 10/09/21 Time of Last Intake of Fluids: 08:00 Date of Last Intake of Solid Food: 10/08/21 Time of Last Intake of Solid Foods: 23:00 Notes The planned sedation has been discussed with the patient. Informed Consent was obtained. I have identified the patient, determined the appropriateness of sedation and have assessed the patient immediately prior to the procedure. All medicine(s) and interventions are by my order.
--- NOTE | 2021-10-09 12:54 | Consultation Report ---
NEPHROLOGY CONSULTATION NOTE REASON FOR CONSULTATION: Hyponatremia. HISTORY OF PRESENT ILLNESS: The patient is a 71-year-old male who was admitted yesterday because of increasing shortness of breath, sputum production, and weight loss. He was found to have hyponatremia with a serum sodium of 125. Overnight, he got some normal saline. This morning, sodium was still low at 126. Urine test has been done and he has a urine osmolality very inappropriately high at 511 and urine sodium of 127. The patient appears fairly euvolemic by exam. He has had complicated pulmonary course in the last few months with multiple hospital admissions as well as multiple evaluations by various pulmonary doctors both as an inpatient as well as outpatient. He was seen earlier today by pulmonary and he is actually getting bronchoscopy today. He currently has a right upper lobe cavitary pneumonia, which is still under investigation for both tuberculosis as well as various fungal infections as well as cancer and various other possible differential diagnosis. He is negative for COVID. He has been losing weight steadily for the last few months and has lost more than 20 pounds in the last few months. His appetite as reported by the patient is very low, and he only drinks lots of liquid. Based on his dietary interview, he drinks about 64 ounces of water per day as well as 36 ounces of soda per day as well as few other drinks, giving an approximate daily fluid intake of around 120 ounces per day. He is not on any diuretics as an outpatient. He was not having any vomiting or diarrhea. MEDICATIONS: Home medication list was reviewed in detail and is as per the reconciliation list. PAST MEDICAL AND SURGICAL HISTORY: Includes asthma, Gomez's esophagus, bronchiectasis, cavitary pneumonia requiring multiple hospital admissions, as well as extensive pulmonary evaluation, generalized anxiety disorder, severe protein energy malnutrition, longstanding asthma, cataract extraction, tonsillectomy. FAMILY HISTORY: Negative for renal disease or dialysis. SOCIAL HISTORY: Former smoker, but stopped long time ago. Alcohol few times a week. No drugs. He lives at home with his . REVIEW OF SYSTEMS: As detailed in HPI. Positive review of systems includes poor appetite, weight loss, progressive shortness of breath, sputum production, and increasing shortness of breath. Otherwise, 12 systems reviewed and negative. PHYSICAL EXAMINATION: GENERAL: Elderly white male who appears quite thin built and malnourished. He is in mild respiratory distress even at rest. Awake, alert, oriented x3. HEENT: Mucous membrane is moist. NECK: Supple. No jugular venous distention. CHEST: Bilateral diffuse rhonchi, especially in the right lung. CARDIOVASCULAR: S1 and S2 regular. Soft systolic murmur heard. ABDOMEN: Soft, nontender. EXTREMITIES: Show no edema. LABORATORY TEST: Shows urine osmolality 511, urine sodium 127, serum sodium was 125 and 126, BUN 16, creatinine 0.6. IMAGING DATA: Chest x-ray shows right apical opacity with underlying pleural thickening. No pulmonary congestion. ASSESSMENT AND PLAN: A 71-year-old male with progressive lung disease, which is still under investigation with cavitary pneumonia in the right lung, now admitted with the same problem and was found to have hyponatremia, serum sodium most recently is 126. I have been consulted for hyponatremia. Hyponatremia: Most recent sodium 126. Urine osmolality is very high and is very inappropriate at 511. Urine sodium 127. The patient appears euvolemic. 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 He was drinking a lot of fluid as an outpatient, which totals to more than 120 ounces per day and in fact if you count the protein drinks, it is actually even more. He has been losing weight and has very low solid food intake as an outpatient. RECOMMENDATIONS: 1. Once he is allowed to eat, I would put him on a fluid restriction of 1200 mL per day. 2. Continue urea 15 grams twice daily for now. 3. Based on the repeat serum sodium, I will decide whether to put him on saline with Lasix or not. He may actually need this. 4. It is not unusual to have SIADH in the setting of chronic lung problems. 5. Cavitary pneumonia in the right lung of unclear etiology, still under investigation. Thank you very much. I will continue to follow the patient. Job ID: [id number] [facility]
[2021-10-09 12:57] LABS: BUN Creatinine Ratio 34.5 (10-20); Calcium 8.4 mg/dl (8.5-10.1); Creatinine Clr Calc Pharmacy 94.2 ml/min; Est GFR (African American) 119.7 ml/min; Est GFR (Non-African American) 103.3 ml/min; Potassium 3.9 mmol/L (3.5-5.1)
--- NOTE | 2021-10-09 13:02 | Procedure Note ---
Procedure Note Date of Service October 09, 2021 Supervising Physician Co-Signing Physician Notes PREOPERATIVE DIAGNOSIS: Large right upper lobe cavitary lesion POSTOPERATIVE DIAGNOSIS: Large right upper lobe cavitary lesion PROCEDURE PERFORMED: Flexible fiberoptic bronchoscopy with bronchial alveolar lavage, brushings and mucosa biopsy COMPLICATIONS: None. INDICATION: Evaluate for infection/malignancy PROCEDURE: After obtaining an informed consent, the patient was brought to the Bronchoscopy Suite. The patient had appropriate oxygen, blood pressure, heart rate, and respiratory rate monitoring applied and monitored continuously throughout the procedure. Supplemental oxygen via nasal cannula as per nursing records was applied to the nasopharynx with adequate saturations achieved. Topical anesthesia with nebulized 1% lidocaine was achieved. Subsequent to this, the patient was premedicated with 6 mg of midazolam and 150 mcg of fentanyl. 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 Lidocaine was instilled on the vocal cords, trachea and stacey. Bilateral tracheobronchial tree inspection was performed. Right upper lobe orifice appeared narrowed. Thick secretions were noted emanating from the right upper lobe and spilling into the lower segments. No obvious endobronchial lesions were seen. There did appear to be chronic inflammation of the right upper lobe. I performed washings of the right upper lobe with 120 mL of saline. Approximately 50 mL of fluid was aspirated back. Brushings for microscopy and cytology were performed of the right upper lobe. I also performed mucosal biopsies of the secondary stacey in the right upper lobe. Some bleeding was seen, but was controlled with saline. Patient was coughing throughout the procedure. The scope was eventually withdrawn from the airway. Patient was a bit sedated after the procedure, but ultimately was arousable and was weaned down to 4 L nasal cannula. Bronchoalveolar lavage samples were sent for cell count, Gram stain and bacterial culture, AFB culture and smear, fungal culture and smear and cytology. Transbronchial biopsies were sent for pathology. Brushings sent for microscopy and cytology. Recommendations: Follow culture data, cytology results and pathology results. Patient did have a small pneumothorax in the right apex. We will repeat a chest x-ray at 6 PM. Coding CPT Codes Pulmonary/Thoracic - Pulmonary and Thoracic: 03154 Dx bronchoscopy/BAL ([id number]) Pulmonary/Thoracic - Pulmonary and Thoracic: 45056 Dx bronchoscopy/brush ([id number]) Pulmonary/Thoracic - Pulmonary and Thoracic: 13926 Bronchoscopy w bronchial or endobronchial bx ([id number]) [facility] [place] Procedure Codes (Charges) Pulmonary/Thoracic Procedure 1: Pulmonary and Thoracic: 38493 Dx bronchoscopy/BAL Procedure 2: Pulmonary and Thoracic: 03285 Dx bronchoscopy/brush Procedure 3: Pulmonary and Thoracic: 38345 Bronchoscopy w bronchial or endobronchial bx
--- NOTE | 2021-10-09 13:28 | XRay Report ---
XR chest 1V portable CLINICAL HISTORY: s/p rul bronch bx TECHNIQUE: Single frontal radiograph of the chest was obtained. Comparison: Comparison is made to chest one view 10/08/2021 FINDINGS: No lines and tubes are seen. The cardiomediastinal silhouette is normal. Density in the right upper l obe is seen with associated pleural thickening. There is possibly a tiny right apical pneumothorax me asuring approximately 8 mm. IMPRESSION: Stable right apical opacity with underlying pleural thickening. Possible tiny pneumothorax in the rig ht apex in this patient status post biopsy. ACT 112: Negative or not required by law. Electronically signed by: Gagan Maddox M.D. 10/09/2021 1:26 PM
[2021-10-09 14:10] LABS: Eosinophil Body Fluid Man 1 %; Fluid Mono/Macrophage 1 %; Lymphocyte Body Fluid Man 2 %; Neutrophil Body Fluid Man 96 %
--- NOTE | 2021-10-09 15:23 | Billing Data ---
Date of Service October 09, 2021 Coding Level of Care Code 87655 Initial Inpt Care Lvl 3
--- NOTE | 2021-10-09 20:52 | XRay Report ---
XR chest 1V portable CLINICAL HISTORY: follow up possible ptx TECHNIQUE: Single frontal radiograph of the chest was obtained. Comparison: Comparison is made to chest one view 10/09/2021 at 1312 hours FINDINGS: No lines and tubes are seen. The cardiomediastinal silhouette is normal. Right apical opacity is agai n seen. Previously noted questionable pneumothorax is no longer seen on this exam. No evidence of ple ural effusion or pneumothorax. IMPRESSION: No evidence of pneumothorax. Pleural thickening and right apical opacity is again seen. ACT 112: Negative or not required by law. Electronically signed by: Gagan Maddox M.D. 10/09/2021 8:51 PM
[2021-10-09] MEDS: ALBUTEROL HFA 8 GM INHALER INH PRN (21:36)
[2021-10-10] MEDS: PIPERACILLIN/TAZOBACTAM 3.375 GM in DEXTROSE 5% 100 ML IV SCH ×3 (03:51→19:37)
[2021-10-10 06:11] LABS: Hematocrit (blood only) 31.7 % (42-52); Hemoglobin 10.2 g/dL (14.0-18.0); Mean Corpuscular Hemoglobin 29.6 pg (25-34); Mean Corpuscular Hgb Conc 32.2 g/dL (32-36); Mean Corpuscular Volume 91.9 fL (80-100); Mean Platelet Volume 9.1 fL (7.4-10.4); Platelet Count 589 K/uL (130-400); RDW Coefficient of Variation 13.1 % (11.5-14.5); RDW Standard Deviation 44.1 fL (36.4-46.3); Red Blood Count 3.45 M/uL (4.7-6.1); White Blood Count 12.81 K/uL (4.8-10.8)
[2021-10-10 06:18] LABS: Calcium 8.5 mg/dl (8.5-10.1); Creatinine Clr Calc Pharmacy 89.6 ml/min; Est GFR (African American) 117.3 ml/min; Est GFR (Non-African American) 101.2 ml/min; Potassium 3.9 mmol/L (3.5-5.1)
[2021-10-10] MEDS: ALBUTEROL HFA 8 GM INHALER INH PRN ×2 (07:53→14:31)
[2021-10-10] MEDS: busPIRone 7.5 MG TAB PO SCH ×2 (07:56→19:43)
[2021-10-10] MEDS: UREA (UREA-NA) 15 GM PACK PO SCH ×2 (07:57→19:44)
[2021-10-10] MEDS: CYANOCOBALAMIN 500 MCG TABLET (VITAMIN B-12) PO SCH (07:57)
[2021-10-10] MEDS: THIAMINE HCL 100 MG TAB PO SCH (07:58)
[2021-10-10] MEDS: FERROUS SULFATE 325 MG TAB PO SCH (07:58)
[2021-10-10] MEDS: PANTOprazole 40 MG TAB PO SCH (07:58)
[2021-10-10] MEDS: POTASSIUM CHLORIDE CRTAB 20 MEQ TABCR PO SCH (07:59)
--- NOTE | 2021-10-10 08:03 | Pulmonology Progress Note ---
Date of Service October 10, 2021 Assessment & Plan (1) Cavitary pneumonia: (2) Asthma: Asthma complication type: with acute exacerbation Asthma persistence: persistent Asthma severity: mild Qualified Code(s): J45.31 - Mild persistent asthma with (acute) exacerbation (3) Bronchiectasis: Bronchiectasis type: with acute exacerbation Qualified Code(s): J47.1 - Bronchiectasis with (acute) exacerbation Plan: 71-year-old male with past medical history of moderate persistent asthma, bronchiectasis, GERD who came in with shortness of breath and productive cough, currently admitted for the third time within a month for right upper lobe c avitary pneumonia. Cavitary pneumonia - At this time Ddx includes inflammatory lung disease, malignancy and chronic infection such as nontuberculous mycobacteria - Continue empiric Zosyn - Follow AFB and sputum culture results - Follow [facility] histoplasmosis and blastomycosis results - Bronchoscopy 10/09 with washings, brushings and biopsies of the right upper lobe -- await results Asthma -Continue Breo Ellipta -Continue rescue inhaler as needed Thank you for allowing us to participate in the care of this patient. Please refer to Dr. Worley's attestation for further information. Admission and Anticipated Discharge Date Admission Date: October 08, 2021 Supervising Physician Co-Signing Physician Notes Patient seen and examined with resident physician. Agree with assessment and plan aside for any additions/exceptions noted. History is relevant for [id number] smoking history. He quit 40 years ago. He lost 20 pounds of weight over the past month. He notes increasing shortness of breath and cough with productive sputum. Patient with a large right upper lobe cavitary lesion. Seen by [facility] pulmonology recently. I performed a bronchoscopy 10/09/21 with washings, brushings and biopsies of the right upper lobe. Will await results. Differential includes inflammatory lung disease, malignancy and chronic infection such as nontuberculous mycobacteria or fungus. Continue Zosyn. Nasal MRSA negative. Prelim fungal cultures are positive for fungus. Will await speciation. In the interim we will initiate voriconazole empirically. He does have a history of elevated Aspergillus antibodies based on work-up by his outpatient nuclear medicine officer in [facility]. Recommend ID consult. Brushings and cytological evaluation yielded atypical cells and purulent material. Mucosal forcep biopsy pending. We will switch the patient from Breo Ellipta to Anoro Ellipta to limit the inhaled corticosteroid given his risk for chronic infection. D/W hospitalist. Physical exam Constitutional: Thin and frail appearing male no apparent distress. Eyes: Pupils are equal round and reactive to light. Conjunctivae are normal. Anicteric sclera. Ears nose, mouth and throat: Mallampati class 2. Normal posterior oropharynx. Uvula is midline. Neck: Trachea is midline. Visual inspection is normal. Respiratory: Coarse breath sounds the right upper lobe. Prolonged phase of exhalation. Cardiovascular: Regular rate and rhythm. No murmurs. No edema. Gastrointestinal: Normal bowel sounds, soft, nontender and nondistended. No hepatosplenomegaly noted. Musculoskeletal: No cyanosis. Patient is able to move all extremities. Skin: No rashes, warm dry and intact. Neurologic: No obvious focal neurological deficits seen. Psychiatric: Alert and oriented x3 with a euthymic affect. Subjective No acute events overnight. He and RN do report that he has been more SOB and coughing more since the bronchoscopy yesterday. Where yesterday he was able to ambulate to the bathroom and back, albeit with dyspnea, he now is unable to do so. Review of Systems Review of Systems: Denies fever, chills, nausea, vomiting, abdominal pain, chest pain, palpitations, hemoptysis, weakness, numbness, headache, dizziness. Physical Exam Physical Exam: GENERAL: A&Ox3. NAD. HEENT: PERRL, EOMI. Moist mucous membranes. CHEST/LUNGS: Coarse breath sounds at RUL. No w/r/r. HEART: RRR. No m/g/r. EXTREMITIES: No cyanosis, no clubbing, no edema SKIN: Warm and dry. No rashes or lesions. PSYCHIATRIC: Euthymic affect, no SI, no pressured speech, no hallucinations NEUROLOGIC: No FND. Results & Data Results & Data ([facility]) Vital Signs (Past 12 Hours) Vital Signs Temp Pulse Pulse Resp BP Pulse Ox 10/10/21 07:53 107 H 96 10/10/21 07:00 36.7 C 109 H 18 126/76 95 10/10/21 03:23 37.4 C 104 H 24 116/63 96 10/09/21 22:58 37.3 C 110 H 20 109/67 97 10/09/21 21:36 107 H 20 95 Critical Care Results & Data Vital Signs (Past 12 Hours) Vital Signs Temp Pulse Pulse Resp BP Pulse Ox 10/10/21 07:53 107 H 96 10/10/21 07:00 36.7 C 109 H 18 126/76 95 10/10/21 03:23 37.4 C 104 H 24 116/63 96 10/09/21 22:58 37.3 C 110 H 20 109/67 97 10/09/21 21:36 107 H 20 95 Lab & Micro Results (Past 24 Hours) RBC 3.45 M/uL (4.7-6.1) L 10/10/21 WBC 12.81 K/uL (4.8-10.8) H 10/10/21 Hgb 10.2 g/dL (14.0-18.0) L 10/10/21 Hct 31.7 % (42-52) L 10/10/21 MCV 91.9 fL (80-100) 10/10/21 MCH 29.6 pg (25-34) 10/10/21 MCHC 32.2 g/dL (32-36) 10/10/21 RDW Standard Deviation 44.1 fL (36.4-46.3) 10/10/21 RDW Coefficient of Variation 13.1 % (11.5-14.5) 10/10/21 Plt Count 589 K/uL (130-400) H 10/10/21 MPV 9.1 fL (7.4-10.4) 10/10/21 Na 129 mmol/L (136-145) L 10/10/21 K 3.9 mmol/L (3.5-5.1) 10/10/21 Cl 94 mmol/L (98-107) L 10/10/21 CO2 24 mmol/L (21-32) 10/10/21 Anion Gap 11 (3-11) 10/10/21 BUN 14 mg/dl (6-23) 10/10/21 Creatinine 0.61 mg/dl (0.6-1.4) 10/10/21 Estimated GFR ( Amer) 117.3 ml/min 10/10/21 Estimated GFR (Non-Af Amer) 101.2 ml/min 10/10/21 BUN/Creatinine Ratio 23.0 (10-20) H 10/10/21 Glu 110 mg/dl (70-99(Fasting)) H 10/10/21 Ca 8.5 mg/dl (8.5-10.1) 10/10/21 Calcium Level 8.5 mg/dl (8.5-10.1) 10/10/21 05:13 10/10/21 Microbiology 10/09/21 12:48 Acid Fast Bacilli Smear - Final Bronch Wash,Right Upper Lobe 10/09/21 00:45 Acid Fast Bacilli Smear - Final Sputum, Expectorated 10/09/21 12:48 Gram Stain - Final Bronch [place], Right Upper Lobe 10/09/21 12:48 Fungal Smear - Final Bronch Wash,Right Upper Lobe 10/09/21 12:48 Gram Stain - Final Bronch Wash,Right Upper Lobe 10/08/21 12:49 Aerobic Blood Culture - Preliminary Blood No growth in Aerobic bottle after 24 hours. Anaerobic Blood Culture - Preliminary No growth in Anaerobic bottle after 24 hours. 10/08/21 12:30 Aerobic Blood Culture - Preliminary Blood No growth in Aerobic bottle after 24 hours. Anaerobic Blood Culture - Preliminary No growth in Anaerobic bottle after 24 hours. 10/09/21 00:45 Gram Stain - Final Sputum, Expectorated Diagnostic Findings (Past 24 Hours) Chest X-Ray 10/09/21 12:58 XR chest 1V portable CLINICAL HISTORY: s/p rul bronch bx TECHNIQUE: Single frontal radiograph of the chest was obtained. Comparison: Comparison is made to chest one view 10/08/2021 FINDINGS: No lines and tubes are seen. The cardiomediastinal silhouette is normal. Density in the right upper lobe is seen with associated pleural thickening. There is possibly a tiny right apical pneumothorax measuring approximately 8 mm. IMPRESSION: Stable right apical opacity with underlying pleural thickening. Possible tiny pneumothorax in the right apex in this patient status post biopsy. ACT 112: Negative or not required by law. Electronically signed by: Gagan Maddox M.D. 10/09/2021 1:26 PM Chest X-Ray 10/09/21 18:00 XR chest 1V portable CLINICAL HISTORY: follow up possible ptx TECHNIQUE: Single frontal radiograph of the chest was obtained. Comparison: Comparison is made to chest one view 10/09/2021 at 1312 hours FINDINGS: No lines and tubes are seen. The cardiomediastinal silhouette is normal. Right apical opacity is again seen. Previously noted questionable pneumothorax is no longer seen on this exam. No evidence of pleural effusion or pneumothorax. IMPRESSION: No evidence of pneumothorax. Pleural thickening and right apical opacity is again seen. ACT 112: Negative or not required by law. Electronically signed by: Gagan Maddox M.D. 10/09/2021 8:51 PM I & O Totals 24 Hours 10/09/21 10/10/21 10/11/21 06:59 06:59 06:59 Intake Total 1555 / 1555 865 / 865 115 / 115 Output Total 575 / 575 Balance 1555 / 1555 290 / 290 115 / 115 Cumulative 10/08/21 11:54 thru 10/10/21 07:57 Intake Total 2535 Output Total 575 Balance 1960 RT Ventilator Mngmt (Last Documented) Ventilator Ordered Settings Respiratory Rate 18 10/10/21 07:00 Ventilator - PT Measurements Respiratory Rate 18 Resident Activity Tracking Resident Involvement: Resident Care Provided Care Provided: Adult Hospital Medicine
[2021-10-10] MEDS: HEPARIN SOD 5,000 UNIT/0.5 ML VIAL SQ SCH ×2 (08:04→19:43)
[2021-10-10] MEDS: FLUTICASONE/VILANTEROL 200/25MCG 14 PUFFS/INHALER INH SCH (08:04)
--- NOTE | 2021-10-10 09:08 | Nephrology Progress Note ---
Date of Service October 10, 2021 Assessment & Plan Admission and Anticipated Discharge Date Admission Date: October 08, 2021 Subjective S--No new issues. Had Bronch Yesterday. PHYSICAL EXAMINATION: GENERAL: Elderly white male who appears quite thin built and malnourished. He is in mild respiratory distress even at rest. Awake, alert, oriented x3. HEENT: Mucous membrane is moist. NECK: Supple. No jugular venous distention. CHEST: Bilateral diffuse rhonchi, especially in the right lung. CARDIOVASCULAR: S1 and S2 regular. Soft systolic murmur heard. ABDOMEN: Soft, nontender. EXTREMITIES: Show no edema. LABORATORY TEST: Shows urine osmolality 511, urine sodium 127, serum sodium was 125 and 126, BUN 16, creatinine 0.6. na this AM 129 IMAGING DATA: Chest x-ray shows right apical opacity with underlying pleural thickening. No pulmonary congestion. ASSESSMENT AND PLAN: A 71-year-old male with progressive lung disease, which is still under investigation with cavitary pneumonia in the right lung, now admitted with the same problem and was found to have hyponatremia, serum sodium most recently is 126. I have been consulted for hyponatremia. Hyponatremia: Most recent sodium 126. Urine osmolality is very high and is very inappropriate at 511. Urine sodium 127. The patient appears euvolemic. 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 He was drinking a lot of fluid as an outpatient, which totals to more than 120 ounces per day and in fact if you count the protein drinks, it is actually even more. He has been losing weight and has very low solid food intake as an outpatient. RECOMMENDATIONS: 1. Continue fluid restriction of 1200 mL per day. 2. Continue urea 15 grams twice daily for now. 3. As long as Na at this level we are good. 4. It is not unusual to have SIADH in the setting of chronic lung problems.Cavitary pneumonia in the right lung of unclear etiology, still under investigation. 5 Daily BMP Results & Data ([facility]) Vital Signs (Past 12 Hours) Vital Signs Temp Pulse Pulse Resp BP Pulse Ox 10/10/21 07:53 107 H 96 10/10/21 07:00 36.7 C 109 H 18 126/76 95 10/10/21 03:23 37.4 C 104 H 24 116/63 96 10/09/21 22:58 37.3 C 110 H 20 109/67 97 10/09/21 21:36 107 H 20 95
[2021-10-10] MEDS: guaiFENesin 600 MG TABCR PO SCH ×2 (10:00→19:43)
[2021-10-10] MEDS: CHLORASEPTIC 1.4% SOLN 180 ML BTL MT PRN ×2 (10:00→19:39)
[2021-10-10] MEDS: BENZONATATE 100 MG CAPSULE PO PRN ×2 (10:00→19:42)
--- NOTE | 2021-10-10 11:11 | Hospitalist Progress Note ---
Date of Service October 10, 2021 Assessment & Plan (1) Cavitary pneumonia: Plan: 71yo M with a PMH of moderate persistent asthma, bronchiectasis, GERD, elevated IgE who presents today with SOB and continued sputum production with 3rd admission within this month for RUL cavitary pneumonia. Recently admitted twice to [facility] for SOB, green sputum production and hyponatremia - found to have RUL pneumonia showing progressive cavitary lesion CT chest with con from 10/03/20 showing cavitated infiltrates in the apical right upper lobe is somewhat further increased from prior. No evidence of PE Evaluated by Dr. Ramírez (pulm) - ddx non-bacterial pneumonia or non-infec tious PNA, at risk for mycoplasma infection such as tuberculosis or AFB, fungal infections including cryptococcus, blastomycosis or histoplasmosis along with inflammatory conditions such as ANCA vasculitis or other inflammatory conditions such as lupus/rheumatoid arthritis Work up so far at [facility] Negative cryptococcal ag Histoplasmosis and blastomycosis labs still pending Preliminary AFB from 10/05 and 10/07 negative Lung culture with normal larry (10/05) ANCA, BRENDON negative but CCP and RF positive - Was reviewed by Rheum at [facility] who recommend outpt f/u. CCP was only mildly elevated Had bronchoscopy on 10/09/[address] Worley One of sputum culture and one of bronchial washing growing fungi - not speciated yet on prelim read today Start voriconazole Check LFT tomorrow ID consult Continue zosyn Supportive care with antitussive (2) Asthma: (3) Bronchiectasis: Plan: Continue inhaler (4) Hyponatremia: Plan: Na of 125, recently seen by nephro at [facility], etiology felt to be SIADH. Serum osm, urine osm suggest SIADH Na today is 129 Continue fluid restriction Continue urea Na Campaign Marketing Manager on board (5) Elevated troponin: Plan: Initial troponin elevated at 0.06. No chest pain or acute ST changes on ECG. (6) Severe protein-energy malnutrition: Plan: Reports 20 lb weight loss in past month per patient. Continue Boost shakes TID, encouraged PO intake Nutrition recs appreciated (7) Generalized anxiety disorder: Plan: Continue Buspar (8) Barretts esophagus: Plan: Following with GI, continue PPI, due for OP EGD in Oct 2021 DVT Ppx: SQ heparin Code status: FULL PCP: ROGE Martinez Dispo: Adm med/surg . Admission and Anticipated Discharge Date Admission Date: October 08, 2021 Subjective Patient seen and examined Had bronchoscopy yesterday Continues to report productive cough and exertional dyspnea Reports sore throat with coughing Denied chest pain, palpitations Denied fevers, chills Denied nausea, vomiting, abd pain, diarrhea Denied dysuria, freq, urgency Physical Exam Constitutional: Thin man coughing Eyes: PERRL, conjunctivae normal, anicteric sclerae ENMT: external ear and nose normal, oropharynx normal Respiratory: Coughing, not in resp distress, on nasal cannula, Coarse breath sounds and scattered crackles in RUL zone Cardiovascular: Rate/Rhythm: regular rate and regular rhythm S1 S3 Gastrointestinal (Abdomen): normal bowel sounds, soft, nontender, no hepatosplenomegaly Musculoskeletal: no cyanosis or clubbing, extremities motor strength 5/5 Neurologic: PERRL, EOMI, accommodation nl, no face palsy, no dysarthria Psychiatric: A+Ox3, euthymic affect Results & Data Results & Data ([facility]) Vital Signs (Past 12 Hours) Vital Signs Temp Pulse Pulse Resp BP Pulse Ox 10/10/21 07:53 107 H 96 10/10/21 07:00 36.7 C 109 H 18 126/76 95 10/10/21 03:23 37.4 C 104 H 24 116/63 96 Laboratory Results Abnormal lab results 10/10/21 10/10/21 Range/Units 05:13 05:13 WBC 12.81 H (4.8-10.8) K/uL RBC 3.45 L (4.7-6.1) M/uL Hgb 10.2 L (14.0-18.0) g/dL Hct 31.7 L (42-52) % Plt Count 589 H (130-400) K/uL Sodium 129 L (136-145) mmol/L Chloride 94 L (98-107) mmol/L BUN/Creatinine Ratio 23.0 H (10-20) Glucose 110 H (70-99(Fasting)) mg/dl (1) Bronchiectasis Bronchiectasis type: with acute exacerbation Qualified Code(s): J47.1 - Bronchiectasis with (acute) exacerbation (2) Asthma Asthma complication type: with acute exacerbation Asthma persistence: persistent Asthma severity: mild Qualified Code(s): J45.31 - Mild persistent asthma with (acute) exacerbation
[2021-10-10] MEDS ORDERED: LORazepam 0.5 MG TAB PO PRN (13:57)
--- NOTE | 2021-10-10 14:03 | Billing Data ---
Date of Service October 10, 2021 Coding Level of Care Code 55318 Subseq Hosp Care Lvl 3
[2021-10-10] MEDS: SODIUM CHLORIDE 0.9% IV SCH (14:55)
[2021-10-10] MEDS: VORICONAZOLE IV SCH (14:55)
[2021-10-11] MEDS: ALBUTEROL HFA 8 GM INHALER INH PRN ×2 (01:46→07:42)
[2021-10-11] MEDS: SODIUM CHLORIDE 0.9% IV SCH ×2 (04:04→13:34)
[2021-10-11] MEDS: VORICONAZOLE IV SCH ×2 (04:04→13:34)
[2021-10-11] MEDS: PIPERACILLIN/TAZOBACTAM 3.375 GM in DEXTROSE 5% 100 ML IV SCH ×3 (04:05→20:01)
[2021-10-11 06:36] LABS: Hematocrit (blood only) 30.1 % (42-52); Hemoglobin 9.7 g/dL (14.0-18.0); Mean Corpuscular Hgb Conc 32.2 g/dL (32-36); Mean Corpuscular Volume 89.9 fL (80-100); Mean Platelet Volume 8.8 fL (7.4-10.4); Platelet Count 504 K/uL (130-400); RDW Standard Deviation 43.1 fL (36.4-46.3); Red Blood Count 3.35 M/uL (4.7-6.1); White Blood Count 14.66 K/uL (4.8-10.8)
[2021-10-11 07:05] LABS: Albumin Globulin Ratio 0.7 (0.9-2); Albumin Level 2.7 gm/dl (3.4-5.0); BUN Creatinine Ratio 17.9 (10-20); Bilirubin,Total 0.5 mg/dl (0.2-1.0); Calcium 8.3 mg/dl (8.5-10.1); Creatinine Clr Calc Pharmacy 64.2 ml/min; Est GFR (African American) 102.8 ml/min; Est GFR (Non-African American) 88.7 ml/min; Globulin 3.9 gm/dl (2.5-4.0); Potassium 3.7 mmol/L (3.5-5.1); Total Protein 6.6 gm/dl (6.0-8.3)
--- NOTE | 2021-10-11 07:33 | Pulmonology Progress Note ---
Date of Service October 11, 2021 Assessment & Plan (1) Cavitary pneumonia: (2) Asthma: Asthma complication type: with acute exacerbation Asthma persistence: persistent Asthma severity: mild Qualified Code(s): J45.31 - Mild persistent asthma with (acute) exacerbation (3) Bronchiectasis: Bronchiectasis type: with acute exacerbation Qualified Code(s): J47.1 - Bronchiectasis with (acute) exacerbation Plan: 71-year-old male with past medical history of moderate persistent asthma, bronchiectasis, GERD who came in with shortness of breath and productive cough, currently admitted for the third time within a month for right upper lobe c avitary pneumonia. Cavitary pneumonia - At this time Ddx includes inflammatory lung disease, malignancy and chronic infection such as nontuberculous mycobacteria - Continue Zosyn - Sputum culture prelim with fungus, AFB culture pending - Follow [facility] histoplasmosis and blastomycosis results - Bronchoscopy 10/09 with washings, brushings and biopsies of the right upper lobe - Prelim fungal cultures are positive for fungus. Continue voriconazole empirically while awaiting speciations. - Recommend ID consult Asthma -Switched to Anoro Ellipta to limit the inhaled corticosteroid given his risk for chronic infection -Continue rescue inhaler as needed Thank you for allowing us to participate in the care of this patient. Please refer to Dr. Worley's attestation for further information. Admission and Anticipated Discharge Date Admission Date: October 08, 2021 Supervising Physician Co-Signing Physician Notes Patient seen and examined with the resident physician. Agree with assessment and plan aside for any additions/exceptions noted: History is relevant for [id number] smoking history. He quit 40 years ago. He lost 20 pounds of weight over the past month. He notes increasing shortness of breath and cough with productive sputum. Bronchial cultures growing Aspergillus [place]. Agree with voriconazole at this time. Recommend infectious disease consultation. 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 He has a very large right upper lobe cavitary lesion. Would recommend outpatient PET/CT. Inpatient MRI of the brain was negative for metastatic disease. Once PET is completed, can decide on the b [facility] site for further tissue sampling. He has an outpatient bid clerk in [facility], but I would be happy to see him as well in the clinic. Chest x-ray reviewed with evidence of small hydropneumothorax and evolving changes in the right upper lobe cavitary lesion secondary to the bronchoscopy. Physical exam Constitutional: Thin and frail appearing male no apparent distress. Eyes: Pupils are equal round and reactive to light. Conjunctivae are normal. Anicteric sclera. Neck: Trachea is midline. Visual inspection is normal. Respiratory: Coarse breath sounds the right upper lobe. Prolonged phase of exhalation. Cardiovascular: Regular rate and rhythm. No murmurs. No edema. Gastrointestinal: Normal bowel sounds, soft, nontender and nondistended. No hepatosplenomegaly noted. Musculoskeletal: No cyanosis. Patient is able to move all extremities. Skin: No rashes, warm dry and intact. Neurologic: No obvious focal neurological deficits seen. Psychiatric: Alert and oriented x3 with a euthymic affect. Subjective No acute events overnight. Says he is feeling better this AM and able to ambulate to bathroom and back again. Feels his inhaler helps. Review of Systems Review of Systems: Denies fever, chills, nausea, vomiting, abdominal pain, chest pain, palpitations, hemoptysis, weakness, numbness, headache, dizziness. Physical Exam Physical Exam: GENERAL: A&Ox3. NAD. HEENT: PERRL, EOMI. Moist mucous membranes. CHEST/LUNGS: Coarse breath sounds at RUL. No w/r/r. HEART: RRR. No m/g/r. EXTREMITIES: No cyanosis, no clubbing, no edema SKIN: Warm and dry. No rashes or lesions. PSYCHIATRIC: Euthymic affect, no SI, no pressured speech, no hallucinations NEUROLOGIC: No FND. Results & Data Results & Data ([facility]) Vital Signs (Past 12 Hours) Vital Signs Temp Pulse Pulse Resp BP Pulse Ox 10/11/21 01:46 131 H 20 90 10/10/21 22:25 37.5 C 108 H 19 102/64 93 Critical Care Results & Data Vital Signs (Past 12 Hours) Vital Signs Temp Pulse Pulse Resp BP Pulse Ox 10/11/21 01:46 131 H 20 90 10/10/21 22:25 37.5 C 108 H 19 102/64 93 Lab & Micro Results (Past 24 Hours) RBC 3.32 M/uL (4.7-6.1) L 10/13/21 WBC 14.51 K/uL (4.8-10.8) H 10/13/21 Hgb 9.7 g/dL (14.0-18.0) L 10/13/21 Hct 29.7 % (42-52) L 10/13/21 MCV 89.5 fL (80-100) 10/13/21 MCH 29.2 pg (25-34) 10/13/21 MCHC 32.7 g/dL (32-36) 10/13/21 RDW Standard Deviation 43.1 fL (36.4-46.3) 10/13/21 RDW Coefficient of Variation 13.1 % (11.5-14.5) 10/13/21 Plt Count 425 K/uL (130-400) H 10/13/21 MPV 9.1 fL (7.4-10.4) 10/13/21 Neutrophils (%) (Auto) 79.0 % 10/13/21 Lymphocytes (%) (Auto) 5.6 % 10/13/21 Monocytes # (Auto) 1.82 K/uL (0.11-0.59) H 10/13/21 Eosinophils # (Auto) 0.31 K/uL (0-0.5) 10/13/21 Immature Granulocyte % (Auto) 0.7 % 10/13/21 Neutrophils # (Auto) 11.45 K/uL (1.4-6.5) H 10/13/21 Lymphocytes # (Auto) 0.81 K/uL (1.2-3.4) L 10/13/21 Monocytes # (Auto) 1.82 K/uL (0.11-0.59) H 10/13/21 Eosinophils # (Auto) 0.31 K/uL (0-0.5) 10/13/21 Basophils # (Auto) 0.02 K/uL (0-0.2) 10/13/21 Immature Granulocyte # (Auto) 0.10 K/uL (0.00-0.02) H 10/13/21 Na 132 mmol/L (136-145) L 10/13/21 K 2.9 mmol/L (3.5-5.1) L 10/13/21 Cl 94 mmol/L (98-107) L 10/13/21 CO2 29 mmol/L (21-32) 10/13/21 Anion Gap 9 (3-11) 10/13/21 BUN 32 mg/dl (6-23) H 10/13/21 Creatinine 1.10 mg/dl (0.6-1.4) 10/13/21 Estimated GFR ( Amer) 78.4 ml/min 10/13/21 Estimated GFR (Non-Af Amer) 67.7 ml/min 10/13/21 BUN/Creatinine Ratio 29.1 (10-20) H 10/13/21 Glu 116 mg/dl (70-99(Fasting)) H 10/13/21 Ca 8.1 mg/dl (8.5-10.1) L 10/13/21 Total Bilirubin 0.4 mg/dl (0.2-1.0) 10/13/21 AST 17 U/L (13-39) 10/13/21 ALT 10 U/L (7-52) 10/13/21 Alkaline Phosphatase 64 U/L (34-104) 10/13/21 TP 6.3 gm/dl (6.0-8.3) 10/13/21 Albumin 2.5 gm/dl (3.4-5.0) L 10/13/21 Globulin 3.8 gm/dl (2.5-4.0) 10/13/21 Albumin/Globulin Ratio 0.7 (0.9-2) L 10/13/21 Mg 2.4 mg/dl (1.7-2.4) 10/13/21 07:09 10/13/21 Calcium Level 8.1 mg/dl (8.5-10.1) L 10/13/21 07:09 10/13/21 Microbiology 10/08/21 12:49 Aerobic Blood Culture - Preliminary Blood No growth in Aerobic bottle after 48 hours. Anaerobic Blood Culture - Preliminary No growth in Anaerobic bottle after 48 hours. 10/08/21 12:30 Aerobic Blood Culture - Preliminary Blood No growth in Aerobic bottle after 48 hours. Anaerobic Blood Culture - Preliminary No growth in Anaerobic bottle after 48 hours. 10/09/21 12:48 Gram Stain - Final Bronch [place], Right Upper Lobe Bronchial Culture - Preliminary Scant normal larry present; Final report to follow. 10/09/21 12:48 Gram Stain - Final Bronch Wash,Right Upper Lobe Bronchial Culture - Preliminary Fungus- ident.to follow 10/09/21 00:45 Gram Stain - Final Sputum, Expectorated Sputum Culture - Preliminary Fungus- ident.to follow 10/09/21 12:48 Acid Fast Bacilli Smear - Final Bronch Wash,Right Upper Lobe 10/09/21 00:45 Acid Fast Bacilli Smear - Final Sputum, Expectorated I & O Totals 24 Hours 10/10/21 10/11/21 10/12/21 06:59 06:59 06:59 Intake Total 865 / 865 1045 / 1045 115 / 115 Output Total 575 / 575 1025 / 1025 Balance 290 / 290 115 / 115 Cumulative 10/08/21 11:54 thru 10/11/21 07:30 Intake Total 3580 Output Total 1600 Balance 1980 RT Ventilator Mngmt (Last Documented) Ventilator Ordered Settings Respiratory Rate 20 10/11/21 01:46 Ventilator - PT Measurements Respiratory Rate 20 Resident Activity Tracking Resident Involvement: Resident Care Provided Care Provided: Adult Hospital Medicine
[2021-10-11] MEDS: CYANOCOBALAMIN 500 MCG TABLET (VITAMIN B-12) PO SCH (08:00)
[2021-10-11] MEDS: UREA (UREA-NA) 15 GM PACK PO SCH ×2 (08:00→21:31)
[2021-10-11] MEDS: FERROUS SULFATE 325 MG TAB PO SCH (08:00)
[2021-10-11] MEDS: HEPARIN SOD 5,000 UNIT/0.5 ML VIAL SQ SCH ×2 (08:00→21:32)
[2021-10-11] MEDS: POTASSIUM CHLORIDE CRTAB 20 MEQ TABCR PO SCH ×2 (08:00→15:01)
[2021-10-11] MEDS: PANTOprazole 40 MG TAB PO SCH (08:01)
[2021-10-11] MEDS: THIAMINE HCL 100 MG TAB PO SCH (08:01)
[2021-10-11] MEDS: busPIRone 7.5 MG TAB PO SCH ×2 (08:02→21:31)
[2021-10-11] MEDS: guaiFENesin 600 MG TABCR PO SCH ×3 (08:02→21:27)
[2021-10-11] MEDS: LORazepam 0.5 MG TAB PO PRN (09:30)
[2021-10-11] MEDS: BENZONATATE 100 MG CAPSULE PO PRN ×2 (09:30→21:31)
--- NOTE | 2021-10-11 09:30 | Nephrology Progress Note ---
Date of Service October 11, 2021 Assessment & Plan Admission and Anticipated Discharge Date Admission Date: October 08, 2021 Subjective Subjective S--No new issues. Had Bronch -result pending.na stable at 129 PHYSICAL EXAMINATION: GENERAL: Elderly white male who appears quite thin built and malnourished. He is in mild respiratory distress even at rest. Awake, alert, oriented x3. HEENT: Mucous membrane is moist. NECK: Supple. No jugular venous distention. CHEST: Bilateral diffuse rhonchi, especially in the right lung. CARDIOVASCULAR: S1 and S2 regular. Soft systolic murmur heard. ABDOMEN: Soft, nontender. EXTREMITIES: Show no edema. LABORATORY TEST: Shows urine osmolality 511, urine sodium 127, serum sodium this AM 129 same as yesterday AM IMAGING DATA: Chest x-ray shows right apical opacity with underlying pleural thickening. No pulmonary congestion. ASSESSMENT AND PLAN: A 71-year-old male with progressive lung disease, which is still under investigation with cavitary pneumonia in the right lung, now admitted with the same problem and was found to have hyponatremia, serum sodium most recently is 126. I have been consulted for hyponatremia. Hyponatremia: Most recent sodium 126. Urine osmolality is very high and is very inappropriate at 511. Urine sodium 127. The patient appears euvolemic. 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 He was drinking a lot of fluid as an outpatient, which totals to more than 120 ounces per day and in fact if you count the protein drinks, it is actually even more. He has been losing weight and has very low solid food intake as an outpatient. RECOMMENDATIONS: 1. Continue fluid restriction of 1200 mL per day. encourage more protein intake 2. Continue urea 15 grams twice daily for now. 3. As long as Na at this level ( > 126) we are good. No need to be more aggressive in Rx this 4. It is not unusual to have SIADH in the setting of chronic lung problems.Cavitary pneumonia in the right lung of unclear etiology, still under investigation. 5 Daily BMP Results & Data ([facility]) Vital Signs (Past 12 Hours) Vital Signs Temp Pulse Pulse Resp BP BP Pulse Ox 10/11/21 07:43 96 H 18 96 10/11/21 07:00 37.3 C 112 H 20 113/70 96 10/11/21 01:46 131 H 20 90 10/10/21 22:25 37.5 C 108 H 19 102/64 93
[2021-10-11] MEDS: UMECLIDINIUM/VILANTEROL 62.5/25MCG 7 PUFFS/INHALER INH SCH (11:13)
[2021-10-11] MEDS: CHLORASEPTIC 1.4% SOLN 180 ML BTL MT PRN (13:34)
[2021-10-11] MEDS: LEVALBUTEROL HCL 0.63 MG/3 ML NEB NEB PRN ×2 (15:22→23:29)
--- NOTE | 2021-10-11 15:36 | Hospitalist Progress Note ---
Date of Service October 11, 2021 Assessment & Plan (1) Cavitary pneumonia: Plan: Patient is a 71 yr male with H/O moderate persistent asthma, bronchiectasis, GERD, elevated IgE who presents today with SOB and continued sputum production with 3rd admission within this month for RUL cavitary pneumonia. Aspergillus pneumonia-POA Squamous Cell carcinoma in situ-POA -CXR:Right apical opacity with underlying pleural thickening favored to represent underlying mass or scarring. Correlation with history is recommended. If not previously evaluated, CT can be considered. 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 Cavitated infiltrates in the apical right upper lobe is somewhat further increased from prior. Differential diagnosis includes cavitary pneumonia,tuberculosis, other mycobacterial infection, aspergillosis, less likely cavitated neoplasm. Bronchoscopy with tissue diagnosis is suggested. Other infiltrates scattered in the remainder of the lungs are relatively stable. Development of a few subcentimeter sclerotic foci in the cervicothoracic spine. Sclerotic/osteoblastic metastasis are not excluded. Further evaluation with nuclear medicine bone scan should to be considered. Work up at [facility]: Sputum culture negative for AFB, Cryptococcal antigen negative, BRENDON screen negative, cyclic citrullinated peptide IgG antibody positive, c-ANCA negative, p-ANCA negative, rheumatoid factor 221, serum immunodiffusion studies positive for Aspergillus flavus and fumigatus but negative for niger. Histoplasmosis and blastomycosis labs pending --Prior hospitalist discussed with field instructor at [facility], recommends outpatient follow-up Continue Zosyn, voriconazole for now ID on board Will order MRI Brain Will need PET scan eventually Appreciate pulmonology input Will consult oncology (2) Asthma: Plan: Breo Ellipta changed to Anoro Ellipta to limit inhaled corticosteroid use Appreciate pulmonology input (3) Bronchiectasis: Plan: Continue inhaler (4) Hyponatremia: Plan: Likely SIADH Sodium 129 Continue Urea Continue fluid restriction Appreciate Nephrology Input (5) Elevated troponin: Plan: Initial troponin elevated at 0.06. No chest pain or acute ST changes on ECG. (6) Severe protein-energy malnutrition: Plan: Reports 20 lb weight loss in past month per patient. Continue Boost shakes TID, encouraged PO intake Nutrition recs appreciated (7) Generalized anxiety disorder: Plan: Continue Buspar (8) Barretts esophagus: Plan: Following with GI, continue PPI, due for OP EGD in Oct 2021 DVT Px: SQ heparin Code status: FULL CODE Admission and Anticipated Discharge Date Admission Date: October 08, 2021 Subjective Patient is seen and examined at bedside States feeling very tired Also reports cough Denies any chest pain, dyspnea, dizziness, nausea, abdominal pain Updated patient's significant other over the phone Review of Systems Review of Systems: All systems reviewed & are unremarkable except as noted in Subjective Physical Exam Physical Exam: Physical Exam: Vitals signs as noted above General Appearance:Thin, frail, no apparent distress Head: normocephalic, Atraumatic Eyes: normal inspection, EOMI Neck: supple, Trachea midline Respiratory/Chest: Decreased breath sounds, CTA, No accessory muscle use Cardiovascular: S1, S2, No murmur Abdomen/GI:Soft, Non tender, Bowel sounds present Extremities/Musculoskeletal:normal inspection, no edema Neurologic/Psych:AAOX3, grossly no focal neurological deficits Skin: normal color, warm Results & Data Results & Data ([facility]) Vital Signs (Past 12 Hours) Vital Signs Temp Pulse Resp BP Pulse Ox 10/11/21 15:22 107 H 18 96 10/11/21 07:43 96 H 18 96 10/11/21 07:00 37.3 C 112 H 20 113/70 96 Laboratory Results Short CBC 10/11/21 Range/Units 06:18 WBC 14.66 H (4.8-10.8) K/uL Hgb 9.7 L (14.0-18.0) g/dL Hct 30.1 L (42-52) % Plt Count 504 H (130-400) K/uL BMP 10/11/21 06:18 Sodium 129 L Potassium 3.7 Chloride 92 L Carbon Dioxide 27 BUN 15 Creatinine 0.84 Glucose 118 H Calcium 8.3 L Liver Function 10/11/21 Range/Units 06:18 Total Bilirubin 0.5 (0.2-1.0) mg/dl AST 11 L (13-39) U/L ALT 7 (7-52) U/L Alkaline Phosphatase 63 (34-104) U/L Albumin 2.7 L (3.4-5.0) gm/dl (1) Asthma Asthma complication type: with acute exacerbation Asthma persistence: persistent Asthma severity: mild Qualified Code(s): J45.31 - Mild persistent asthma with (acute) exacerbation (2) Bronchiectasis Bronchiectasis type: with acute exacerbation Qualified Code(s): J47.1 - Bronchiectasis with (acute) exacerbation
[2021-10-11] MEDS ORDERED: FUROSEMIDE INJ 20 MG/2 ML VIAL IV ONE (16:26)
--- NOTE | 2021-10-11 16:58 | XRay Report ---
XR chest 1V portable CLINICAL HISTORY: Hypoxia COMPARISON STUDY: Chest CT January 02, 2016. Chest radiograph October 09, 2021. FINDINGS: There may be a trace right basilar pneumothorax. Small right pleural effusion is noted. Rig ht suprahilar density measuring approximately 5.9 cm is noted with volume loss. This was shown on deb or exam. There is adjacent airspace opacity, slightly increased. Mild reticulonodular interstitial th ickening within the lungs is present. IMPRESSION: 1. Redemonstration of a right suprahilar mass-like density measuring 5.9 cm. This could be neoplastic or infectious. Adjacent airspace opacity, slightly increased. This is likely infectious. Radiographi c follow-up is recommended. 2. Suspected small right hydropneumothorax. 3. Reticulonodular interstitial thickening within the lungs which favors an infectious process. ACT 112: Negative or not required by law. Electronically signed by: Keagan Reeves M.D. 10/11/2021 4:56 PM
--- NOTE | 2021-10-11 17:56 | Pulmonology Progress Note ---
Date of Service October 11, 2021 Assessment & Plan (1) Cavitary pneumonia: (2) Asthma: Asthma complication type: with acute exacerbation Asthma persistence: persistent Asthma severity: mild Qualified Code(s): J45.31 - Mild persistent asthma with (acute) exacerbation (3) Bronchiectasis: Bronchiectasis type: with acute exacerbation Qualified Code(s): J47.1 - Bronchiectasis with (acute) exacerbation Plan: Attending: Dr. Worley Impression: 71-year-old male with past medical history of moderate persistent asthma, bronchiectasis, GERD who came in with shortness of breath and productive cough, currently admitted for the third time within a month for right upper lobe cavitary pneumonia. Patient underwent bronchoscopy with Dr. Worley 10/09/2021. Results show squamous cell carcinoma. Cavitary pneumonia - At this time Ddx includes inflammatory lung disease, malignancy and chronic infection such as nontuberculous mycobacteria - Continue empiric Zosyn - Follow AFB and sputum culture results -Cultures with Aspergillus. Patient started on voriconazole. 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 Recommend oncology consult. Continue antibiotics pending final culture results. - Still awaiting ID consult note. Primary team to follow-up Asthma -Discontinue Breo Ellipta to eliminate steroid aspect due to Aspergillus. Start patient on Umeclidinium/Vilanterol (Anoro Ellipta) (AC/LABA) -Continue rescue inhaler as needed -No exacerbation at this time Squamous cell carcinoma - 5.9 cm opacity in the right apex -Consult oncology DVT prophylaxis -Due to new diagnosis of malignancy, consider Lovenox for chemical prophylaxis. No hemoptysis reported. At this time, the pulmonary team will sign off now that we have a diagnosis. Please feel free to call or reconsult if further need arises. Discussed post discharge care with patient and he prefers to follow with Dr. Steinberg in [place]. Admission and Anticipated Discharge Date Admission Date: October 08, 2021 Supervising Physician Co-Signing Physician Notes Patient seen separately from the ISAEL. History is relevant for [id number] smoking history. He quit 40 years ago. He lost 20 pounds of weight over the past month. He notes increasing shortness of breath and cough with productive sputum. Bronchial cultures growing Aspergillus [place]. Agree with voriconazole at this time. Recommend infectious disease consultation. 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 He has a very large right upper lobe cavitary lesion. Would recommend outpatient PET/CT. Inpatient MRI of the brain was negative for metastatic disease. Once PET is completed, can decide on the best site for further tissue sampling. He has an outpatient advice line rn in [facility], but I would be happy to see him as well in the clinic. Chest x-ray reviewed with evidence of small hydropneumothorax and evolving changes in the right upper lobe cavitary lesion secondary to the bronchoscopy. Physical exam Constitutional: Thin and frail appearing male no apparent distress. Eyes: Pupils are equal round and reactive to light. Conjunctivae are normal. Anicteric sclera. Neck: Trachea is midline. Visual inspection is normal. Respiratory: Coarse breath sounds the right upper lobe. Prolonged phase of exhalation. Cardiovascular: Regular rate and rhythm. No murmurs. No edema. Gastrointestinal: Normal bowel sounds, soft, nontender and nondistended. No hepatosplenomegaly noted. Musculoskeletal: No cyanosis. Patient is able to move all extremities. Skin: No rashes, warm dry and intact. Neurologic: No obvious focal neurological deficits seen. Psychiatric: Alert and oriented x3 with a euthymic affect. Subjective Attending: Dr. Worley Patient seen and examined in room 289. His was present. Patient is having worsening shortness of breath. He does sound wet. He is receiving furosemide during the course of my examination. Patient denies any hemoptysis. He has no fever or chills. Chief complaint remains shortness of breath. Review of Systems Review of Systems: All systems reviewed & are unremarkable except as noted in Subjective Physical Exam Physical Exam: GENERAL : No acute distress. Appears short of breath EYES: No icterus, gaze conjugate NOSE: No evidence of epistaxis MOUTH: No lesions or candidiasis NECK: Supple LUNGS: Bibasilar crackles with ronchi in upper alvarez HEART: Regular, rate controlled ABDOMEN: Soft, NT, ND, BS Present EXTREMITIES: No LE edema, pedal pulses intact NEURO: A&OX3 Results & Data Results & Data ([facility]) Vital Signs (Past 12 Hours) Vital Signs Temp Pulse Resp BP BP Pulse Ox 10/11/21 17:20 20 94 10/11/21 16:03 130 H 24 121/70 92 10/11/21 15:51 36.9 C 103 H 18 104/62 96 10/11/21 15:22 107 H 18 96 10/11/21 07:43 96 H 18 96 10/11/21 07:00 37.3 C 112 H 20 113/70 96 Laboratory Results 10/11/21 06:18 10/11/21 06:18 Diagnostic Findings Chest X-Ray 10/11/21 16:26 XR chest 1V portable CLINICAL HISTORY: Hypoxia COMPARISON STUDY: Chest CT January 02, 2016. Chest radiograph October 09, 2021. FINDINGS: There may be a trace right basilar pneumothorax. Small right pleural effusion is noted. Right suprahilar density measuring approximately 5.9 cm is noted with volume loss. This was shown on prior exam. There is adjacent airspace opacity, slightly increased. Mild reticulonodular interstitial thickening within the lungs is present. IMPRESSION: 1. Redemonstration of a right suprahilar mass-like density measuring 5.9 cm. This could be neoplastic or infectious. Adjacent airspace opacity, slightly increased. This is likely infectious. Radiographic follow-up is recommended. 2. Suspected small right hydropneumothorax. 3. Reticulonodular interstitial thickening within the lungs which favors an infectious process. ACT 112: Negative or not required by law. Electronically signed by: Keagan Reeves M.D. 10/11/2021 4:56 PM PG Care Time/CCT Total # of Minutes Spent Total Time Spent with Patient: Total time spent is greater than 50% in coordination of care (as documented) at patient's floor/unit and/or counseling patient: 35 minutes including discussion with regarding cancer diagnosis. She requests that patient not be notified today. She wants Dr. Mcgowan to discuss it with him tomorrow. Coding Level of Care Code 27875 Subseq Hosp Care Lvl 2 Diagnoses Cavitary pneumonia J18.9; J98.4 Asthma J45.31 Asthma complication type: with acute exacerbation Asthma persistence: persistent Asthma severity: mild Bronchiectasis J47.1 Bronchiectasis type: with acute exacerbation Time Spent (min) 35
[2021-10-11] MEDS ORDERED: GADOBUTROL 65ML VIAL IV ONE (22:54)
[2021-10-12] MEDS: VORICONAZOLE IV SCH ×2 (01:19→15:30)
[2021-10-12] MEDS: SODIUM CHLORIDE 0.9% IV SCH ×2 (01:19→15:30)
[2021-10-12] MEDS: CHLORASEPTIC 1.4% SOLN 180 ML BTL MT PRN ×2 (01:39→07:58)
[2021-10-12] MEDS: LORazepam 0.5 MG TAB PO PRN (01:45)
[2021-10-12] MEDS: PIPERACILLIN/TAZOBACTAM 3.375 GM in DEXTROSE 5% 100 ML IV SCH ×3 (04:23→20:02)
[2021-10-12 06:13] LABS: Basophils # (auto) 0.03 K/uL (0-0.2); Basophils % (auto) 0.2 %; Eosinophils # (auto) 0.02 K/uL (0-0.5); Eosinophils % (auto) 0.1 %; Hematocrit (blood only) 31.1 % (42-52); Immature Granulocytes # (auto) 0.11 K/uL (0.00-0.02); Immature Granulocytes % (auto) 0.7 %; Lymphocytes # (auto) 1.43 K/uL (1.2-3.4); Lymphocytes % (auto) 8.9 %; Mean Corpuscular Hemoglobin 29.1 pg (25-34); Mean Corpuscular Hgb Conc 32.2 g/dL (32-36); Mean Corpuscular Volume 90.4 fL (80-100); Monocytes # (auto) 1.21 K/uL (0.11-0.59); Monocytes % (auto) 7.6 %; Neutrophils # (auto) 13.21 K/uL (1.4-6.5); Neutrophils % (auto) 82.5 %; Platelet Count 482 K/uL (130-400); RDW Coefficient of Variation 13.2 % (11.5-14.5); RDW Standard Deviation 43.8 fL (36.4-46.3); Red Blood Count 3.44 M/uL (4.7-6.1); White Blood Count 16.01 K/uL (4.8-10.8)
[2021-10-12 06:48] LABS: Albumin Globulin Ratio 0.7 (0.9-2); Albumin Level 2.6 gm/dl (3.4-5.0); BUN Creatinine Ratio 23.6 (10-20); Bilirubin,Total 0.5 mg/dl (0.2-1.0); Calcium 8.1 mg/dl (8.5-10.1); Creatinine Clr Calc Pharmacy 49.1 ml/min; Est GFR (African American) 78.4 ml/min; Est GFR (Non-African American) 67.7 ml/min; Globulin 3.9 gm/dl (2.5-4.0); Potassium 3.1 mmol/L (3.5-5.1); Total Protein 6.5 gm/dl (6.0-8.3)
[2021-10-12] MEDS: UMECLIDINIUM/VILANTEROL 62.5/25MCG 7 PUFFS/INHALER INH SCH (07:58)
[2021-10-12] MEDS: FERROUS SULFATE 325 MG TAB PO SCH (07:59)
[2021-10-12] MEDS: PANTOprazole 40 MG TAB PO SCH (07:59)
[2021-10-12] MEDS: POTASSIUM CHLORIDE CRTAB 20 MEQ TABCR PO SCH (07:59)
[2021-10-12] MEDS: HEPARIN SOD 5,000 UNIT/0.5 ML VIAL SQ SCH ×2 (07:59→20:03)
[2021-10-12] MEDS: THIAMINE HCL 100 MG TAB PO SCH (07:59)
[2021-10-12] MEDS: CYANOCOBALAMIN 500 MCG TABLET (VITAMIN B-12) PO SCH (07:59)
[2021-10-12] MEDS: UREA (UREA-NA) 15 GM PACK PO SCH ×2 (07:59→20:04)
[2021-10-12] MEDS: guaiFENesin 600 MG TABCR PO SCH ×2 (07:59→20:03)
[2021-10-12] MEDS: busPIRone 7.5 MG TAB PO SCH ×2 (08:06→20:03)
[2021-10-12] MEDS ORDERED: POTASSIUM CHLORIDE CRTAB 20 MEQ TABCR PO ONE (09:00)
--- NOTE | 2021-10-12 09:29 | XRay Report ---
XR chest 2V PA/lateral CLINICAL HISTORY: ? Right hydropneumothorax TECHNIQUE: AP and lateral frontal radiograph of the chest was obtained. Comparison: Comparison is made to chest one view 10/11/2021 FINDINGS: No lines and tubes are seen. The cardiomediastinal silhouette is normal. Right upper lobe mass is see n. There is generally increased airspace opacity in the right lung. There is slight increase in right pleural effusion. Pneumothorax is difficult to evaluate due to underlying opacity however no signifi cant increase pneumothorax is seen. IMPRESSION: 1. Slight increase in right pleural effusion. No evidence of enlarging pneumothorax. 2. Increased opacities in the right lung may represent infectious/inflammatory process. ACT 112: Negative or not required by law. Electronically signed by: Gagan Maddox M.D. 10/12/2021 9:28 AM
--- NOTE | 2021-10-12 09:51 | Magnetic Resonance Report ---
MR brain wo/w con HISTORY: 71 years-old Male Squamous cell Carcinoma, screening study for possible metastatic disease in a patient with history of lung cancer. COMPARISON: None. TECHNIQUE: Multiplanar and multisequence MRI of the brain was obtained both with and without the use of 5.5 cc Gadavist. FINDINGS: Facility Rehab Director localizer images demonstrate no gross extracranial abnormality. Motion degraded exam. There is no restricted diffusion to suggest acute or subacute infarct. The midline structures appear unremarka ble. Partially empty sella. No acute intracranial hemorrhage, midline shift, abnormal extraaxial susie ection, hydrocephalus or intracranial mass identified. Age-related involutional changes with mild ex vacuo ventriculomegaly. Mild to moderate scattered T2/FLAIR hyperintense foci are noted throughout th e white matter. No pathologic blooming artifact. No abnormal enhancement. The cerebral venous sinuses and major arterial flow voids appear patent. The mastoid air cells and pa ranasal sinuses are generally clear. The skull, orbits and soft tissues are unremarkable. Prior bilat eral lens repair. IMPRESSION: 1. Motion degraded exam. No acute intracranial abnormality identified. 2. Age-related involutional changes with mild to moderate chronic microvascular ischemic disease. 3. No abnormal enhancement. ACT 112: Negative or not required by law. The above report was generated using voice recognition software. It may contain grammatical, syntax o r spelling errors. Dictated: 10/12/2021 7:39 AM Transcribed: 10/12/2021 8:28 AM Lindsay [id number] [email or web address] Electronically signed by: Kelvin Arevalo M.D. 10/12/2021 9:50 AM
[2021-10-12] MEDS: POTASSIUM CHLORIDE PWD 20 MEQ PACK PO SCH ×2 (11:03→20:03)
--- NOTE | 2021-10-12 13:24 | XRay Report ---
XR chest 2V PA/lateral CLINICAL HISTORY: Small right pneumothorax. COMPARISON STUDY: Chest radiograph October 12, 2021 at 8:52 AM. FINDINGS: Right upper lobe mass-like opacity, possibly cavitary, is again noted. There is adjacent ai rspace opacity with a small amount of pleural fluid. Right upper lobe volume loss is present. There i s a possible small right hydropneumothorax. Cardiac size is normal. Reticulonodular interstitial thic kening within the remainder of the lungs is noted. There is suspected lingular opacity. IMPRESSION: 1. Redemonstration of a right upper lobe mass-like opacity, possibly cavitary. Adjacent airspace opac ity and small amount of pleural fluid. 2. Possible small right hydropneumothorax. 3. Reticulonodular interstitial thickening with the remainder of the lungs with lingular opacity whic h is likely infectious. ACT 112: Negative or not required by law. Electronically signed by: Keagan Reeves M.D. 10/12/2021 1:23 PM
--- NOTE | 2021-10-12 17:44 | Hospitalist Progress Note ---
Date of Service October 12, 2021 Assessment & Plan (1) Cavitary pneumonia: Plan: Patient is a 71 yr male with H/O moderate persistent asthma, bronchiectasis, GERD, elevated IgE who presents today with SOB and continued sputum production with 3rd admission within this month for RUL cavitary pneumonia. Aspergillus pneumonia-POA Squamous Cell carcinoma in situ-POA -CXR:Right apical opacity with underlying pleural thickening favored to represent underlying mass or scarring. Correlation with history is recommended. If not previously evaluated, CT can be considered. 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 Cavitated infiltrates in the apical right upper lobe is somewhat further increased from prior. Differential diagnosis includes cavitary pneumonia,tuberculosis, other mycobacterial infection, aspergillosis, less likely cavitated neoplasm. Bronchoscopy with tissue diagnosis is suggested. Other infiltrates scattered in the remainder of the lungs are relatively stable. Development of a few subcentimeter sclerotic foci in the cervicothoracic spine. Sclerotic/osteoblastic metastasis are not excluded. Further evaluation with nuclear medicine bone scan should to be considered. Work up at [facility]: Sputum culture negative for AFB, Cryptococcal antigen negative, BRENDON screen negative, cyclic citrullinated peptide IgG antibody positive, c-ANCA negative, p-ANCA negative, rheumatoid factor 221, serum immunodiffusion studies positive for Aspergillus flavus and fumigatus but negative for niger. Histoplasmosis and blastomycosis labs pending --Prior hospitalist discussed with bread room hand at [facility], recommends outpatient follow-up Continue Zosyn, voriconazole for now ID on board --MRI Brain:Motion degraded exam. No acute intracranial abnormality identified. Age-related involutional changes with mild to moderate chronic microvascular ischemic disease. No abnormal enhancement. Will need PET scan eventually Appreciate pulmonology input Consult oncology for Input Continue supplemental oxygen as needed Leukocytosis trending up Possible small right hydropneumothorax. Will repeat CXR tomorrow (2) Asthma: Plan: Breo Ellipta changed to Anoro Ellipta to limit inhaled corticosteroid use Appreciate pulmonology input (3) Bronchiectasis: Plan: Continue inhaler (4) Hyponatremia: Plan: Likely SIADH Sodium 129>131 Continue Urea Continue fluid restriction Appreciate Nephrology Input Hypokalemia Replace electrolytes as needed (5) Elevated troponin: Plan: Initial troponin elevated at 0.06. No chest pain or acute ST changes on ECG. (6) Severe protein-energy malnutrition: Plan: Reports 20 lb weight loss in past month per patient. Continue Boost shakes TID, encouraged PO intake Nutrition recs appreciated (7) Generalized anxiety disorder: Plan: Continue Buspar (8) Barretts esophagus: Plan: Following with GI, continue PPI, due for OP EGD in Oct 2021 DVT Px: SQ heparin Code status: FULL CODE Admission and Anticipated Discharge Date Admission Date: October 08, 2021 Subjective Patient is seen and examined at bedside States have dyspnea with minimal exertion Cough much improved Denies any chest pain, dizziness, nausea, abdominal pain Continue on 3 L supplemental oxygen Review of Systems Review of Systems: All systems reviewed & are unremarkable except as noted in Subjective Physical Exam Physical Exam: Physical Exam: Vitals signs as noted above General Appearance:Thin, frail, no apparent distress Head: normocephalic, Atraumatic Eyes: normal inspection, EOMI Neck: supple, Trachea midline Respiratory/Chest: Decreased breath sounds, CTA, No accessory muscle use Cardiovascular: S1, S2, No murmur Abdomen/GI:Soft, Non tender, Bowel sounds present Extremities/Musculoskeletal:normal inspection, no edema Neurologic/Psych:AAOX3, grossly no focal neurological deficits Skin: normal color, warm Results & Data Results & Data ([facility]) Vital Signs (Past 12 Hours) Vital Signs Temp Pulse Resp BP BP Pulse Ox 10/12/21 15:00 36.7 C 104 H 18 116/65 94 10/12/21 07:00 36.5 C 106 H 20 95/62 L 90 Laboratory Results Short CBC 10/12/21 Range/Units 05:52 WBC 16.01 H (4.8-10.8) K/uL Hgb 10.0 L (14.0-18.0) g/dL Hct 31.1 L (42-52) % Plt Count 482 H (130-400) K/uL BMP 10/12/21 05:51 Sodium 131 L Potassium 3.1 L Chloride 93 L Carbon Dioxide 28 BUN 26 H Creatinine 1.10 Glucose 111 H Calcium 8.1 L Liver Function 10/12/21 Range/Units 05:51 Total Bilirubin 0.5 (0.2-1.0) mg/dl AST 14 (13-39) U/L ALT 9 (7-52) U/L Alkaline Phosphatase 67 (34-104) U/L Albumin 2.6 L (3.4-5.0) gm/dl (1) Asthma Asthma complication type: with acute exacerbation Asthma persistence: persistent Asthma severity: mild Qualified Code(s): J45.31 - Mild persistent asthma with (acute) exacerbation (2) Bronchiectasis Bronchiectasis type: with acute exacerbation Qualified Code(s): J47.1 - Bronchiectasis with (acute) exacerbation
[2021-10-12] MEDS: LEVALBUTEROL HCL 0.63 MG/3 ML NEB NEB PRN (20:33)
[2021-10-13] MEDS: SODIUM CHLORIDE 0.9% IV SCH ×2 (02:42→14:40)
[2021-10-13] MEDS: VORICONAZOLE IV SCH ×2 (02:42→14:40)
[2021-10-13] MEDS: PIPERACILLIN/TAZOBACTAM 3.375 GM in DEXTROSE 5% 100 ML IV SCH ×3 (03:05→19:49)
[2021-10-13 07:32] LABS: Basophils # (auto) 0.02 K/uL (0-0.2); Basophils % (auto) 0.1 %; Eosinophils # (auto) 0.31 K/uL (0-0.5); Eosinophils % (auto) 2.1 %; Hematocrit (blood only) 29.7 % (42-52); Hemoglobin 9.7 g/dL (14.0-18.0); Immature Granulocytes % (auto) 0.7 %; Lymphocytes # (auto) 0.81 K/uL (1.2-3.4); Lymphocytes % (auto) 5.6 %; Mean Corpuscular Hemoglobin 29.2 pg (25-34); Mean Corpuscular Hgb Conc 32.7 g/dL (32-36); Mean Corpuscular Volume 89.5 fL (80-100); Mean Platelet Volume 9.1 fL (7.4-10.4); Monocytes # (auto) 1.82 K/uL (0.11-0.59); Monocytes % (auto) 12.5 %; Neutrophils # (auto) 11.45 K/uL (1.4-6.5); Platelet Count 425 K/uL (130-400); RDW Coefficient of Variation 13.1 % (11.5-14.5); RDW Standard Deviation 43.1 fL (36.4-46.3); Red Blood Count 3.32 M/uL (4.7-6.1); White Blood Count 14.51 K/uL (4.8-10.8)
[2021-10-13 07:56] LABS: Albumin Globulin Ratio 0.7 (0.9-2); Albumin Level 2.5 gm/dl (3.4-5.0); BUN Creatinine Ratio 29.1 (10-20); Bilirubin,Total 0.4 mg/dl (0.2-1.0); Calcium 8.1 mg/dl (8.5-10.1); Creatinine Clr Calc Pharmacy 49.1 ml/min; Est GFR (African American) 78.4 ml/min; Est GFR (Non-African American) 67.7 ml/min; Globulin 3.8 gm/dl (2.5-4.0); Magnesium 2.4 mg/dl (1.7-2.4); Potassium 2.9 mmol/L (3.5-5.1); Total Protein 6.3 gm/dl (6.0-8.3)
--- NOTE | 2021-10-13 08:35 | XRay Report ---
XR chest 1V portable CLINICAL HISTORY: Right pleural effusion COMPARISON STUDY: Chest radiograph October 12, 2021 at 11:49 AM. FINDINGS: Right upper lobe mass-like density is again noted. This may be cavitary. Adjacent airspace opacity with a small right pleural effusion is noted. There may be a small amount of right pleural ga s. Mild lingular opacity is noted. There is no left pneumothorax. Cardiac size is normal. There is no evidence for pulmonary edema. IMPRESSION: 1. No significant change in a right upper lobe mass-like density which may be cavitary. Differential considerations include infectious and neoplastic etiologies. Adjacent airspace opacity. Possible smal l right hydropneumothorax, likely decreased since prior exam. 2. Additional mild airspace opacities within the lungs with reticulonodular interstitial thickening. ACT 112: Negative or not required by law. Electronically signed by: Keagan Reeves M.D. 10/13/2021 8:33 AM
[2021-10-13] MEDS: busPIRone 7.5 MG TAB PO SCH ×2 (08:38→20:17)
[2021-10-13] MEDS: THIAMINE HCL 100 MG TAB PO SCH (08:38)
[2021-10-13] MEDS: guaiFENesin 600 MG TABCR PO SCH ×3 (08:39→20:17)
[2021-10-13] MEDS: PANTOprazole 40 MG TAB PO SCH (08:39)
[2021-10-13] MEDS: FERROUS SULFATE 325 MG TAB PO SCH (08:39)
[2021-10-13] MEDS: CYANOCOBALAMIN 500 MCG TABLET (VITAMIN B-12) PO SCH (08:39)
[2021-10-13] MEDS: UREA (UREA-NA) 15 GM PACK PO SCH (08:40)
[2021-10-13] MEDS: UMECLIDINIUM/VILANTEROL 62.5/25MCG 7 PUFFS/INHALER INH SCH (08:40)
[2021-10-13] MEDS: HEPARIN SOD 5,000 UNIT/0.5 ML VIAL SQ SCH ×2 (08:40→20:17)
[2021-10-13] MEDS ORDERED: SODIUM CHLORIDE 0.9% 500 ML IV ONE (09:35)
--- NOTE | 2021-10-13 09:37 | Consultation Report ---
MEDICAL ONCOLOGY CONSULTATION DATE OF SERVICE: 10/13/2021 REASON FOR CONSULTATION: Squamous cell carcinoma in situ (lung). HISTORY OF PRESENT ILLNESS: Kaz is a pleasant 71-year-old gentleman who was admitted to [facility] on 10/08 with a cavitary pneumonia. This gentleman has a significant pulmonary history consisting of asthma, bronchiectasis and, I suspect, COPD. He presented to [facility] with progressive shortness of breath and sputum production. He apparently was previously admitted to [facility] with right upper lobe pneumonia, which showed progressive cavitary l esion, discharged home 3 days later on Augmentin b.i.d. CT scan of the chest with contrast performed on 10/03 showed cavitated infiltrates in the apical right upper lobe, which somewhat increased from prior radiographic examination. There was no evidence of pulmonary embolism. The patient was seen i n consultation by pulmonary at that time and thought the diagnosis was nonbacterial pneumonia or a no ninfectious PNA. Bronchoscopy with tissue diagnosis was suggested, but not performed during the admi ssion until tuberculosis was essentially ruled out. The patient has also been seen by our pulmonary service and bronchoscopy was performed with biopsies, specifically an endobronchial biopsy of the rig ht upper lobe, which was interpreted as highly atypical, thought to be consistent with a squamous jeremiah l carcinoma in situ. The interpreting pathologist clearly indicates there is no evidence of invasive squamous cell carcinoma on that particular specimen. Thus, the patient has been placed on broad-spe ctrum antibiotics as well as oxygen supplementation. Serial chest x-rays have been performed during the hospital stay. The primary service is asking for an opinion regarding the diagnosis of squamous cell carcinoma in situ. PAST MEDICAL HISTORY: Includes COPD, asthma, bronchiectasis, gastroesophageal reflux disease, Nick t esophagus, cavitary pneumonia, generalized anxiety disorder. PAST SURGICAL HISTORY: Includes tonsillectomy and cataract extraction. MEDICATIONS PRIOR TO ADMISSION: Include Augmentin 1 tablet p.o. b.i.d., buspirone 7.5 mg p.o. b.i.d. , vitamin B12 1000 mcg p.o. daily, ferrous sulfate 325 mg p.o. daily, Breo Ellipta inhaler 1 inhalati on daily, magnesium 100 mg p.o. daily, omeprazole 20 mg p.o. daily, potassium chloride 20 mEq p.o. da roderick, thiamine 100 mg p.o. daily and urea 1 packet p.o. b.i.d. ALLERGIES: No known drug allergies. SOCIAL HISTORY: The patient is a reformed smoker of 30 pack years recorded. He consumes alcohol at least 2 to 3 times per week. Negative for illicit substances. FAMILY HISTORY: Negative for neoplasia. REVIEW OF SYSTEMS: CONSTITUTIONAL: As per HPI, most notably for generalized weakness, shortness of breath and some prod uctive cough. Negative for fevers or chills. Negative for anorexia or weight loss. SKIN: No rashes or lesions. No history of dermatoses. HEENT: Negative for headaches, lightheadedness or dizziness. Recent cataract surgery. No acute vis ual or hearing deficits. No sinus symptoms, sore throat or dysphagia. LYMPHATICS: No history of lymphoproliferative disease. CARDIAC: No history of coronary artery disease, no angina or palpitations. PULMONARY: As per HPI. GASTROINTESTINAL: Negative for abdominal pain, nausea, vomiting, diarrhea or constipation, hematoche yue or melena stools. GENITOURINARY: No hematuria, dysuria, urinary incontinence. PSYCHIATRIC: Positive for anxiety. MUSCULOSKELETAL: No arthralgias or myalgias. No focal muscle weakness. ENDOCRINE: Negative for diabetes or thyroid disease. NEUROLOGIC: Negative for seizure, stroke or migraine headache. HEMATOLOGIC: Positive for normocytic normochromic anemia, mild thrombocytosis, and mild leukocytosis predominant neutrophilia. PHYSICAL EXAMINATION: GENERAL: Very pleasant, cachectic-appearing 71-year-old gentleman, awake, alert and appropriate, in no acute distress. VITAL SIGNS: Temperature 36.7, pulse 92, respiratory rate 20, blood pressure 95/58. SKIN: Warm, dry, noncyanotic without petechia, rash or ecchymosis. HEENT: Atraumatic, normocephalic. Eyes: PERRLA. EOMI. Sclerae are nonicteric. No conjunctival in jection. Nares patent without rhinorrhea or discharge. Throat clear. Tongue midline. Mucous membr anes are moist. NECK: Supple without JVD or thyromegaly. LYMPHATICS: No cervical or supraclavicular palpable nodes. HEART: Regular rate and rhythm. No clicks, rubs, murmurs or gallops. LUNGS: Diffuse rhonchi heard in all alvarez posteriorly. ABDOMEN: Soft, nontender, nondistended, without palpable hepatosplenomegaly. EXTREMITIES: No clubbing, cyanosis or edema. MUSCULOSKELETAL: Strength and pulses are equal in all 4 quadrants. NEUROLOGICAL: Grossly intact. LABORATORY DATA: WBC count 14,510, hemoglobin 9.7 g/dL, platelet count 425,000, absolute neutrophil count 11,450. Sodium 132, potassium 2.9, chloride 94, BUN 32, carbon dioxide 29, creatinine 1.10, al bumin 2.5. RADIOGRAPHIC DATA: MRI of the brain: [id number]-[id number] chronic microvascular ischemic disease, otherw ise no evidence of intracerebral metastatic disease. Chest x-ray: Redemonstration of right upper lo be mass-like opacity, possibly cavitary, adjacent airspace opacity and small amount of pleural fluid. Possible small right hydropneumothorax. IMPRESSION: 1. Squamous cell carcinoma in situ, right upper lobe. 2. Cavitary pneumonia. 3. Asthma. 4. Bronchiectasis. 5. Electrolyte dysfunction. 6. Hypoalbuminemia. PLAN: It was my pleasure to visit with Kaz at bedside. He imparts history of 40 years of chroni c pulmonary disease, he describes as "pneumonia for 40 years." That said, he has no history of docum ented lung cancer. He has had no CT imaging here at [facility], apparently had a CT scan recently at [facility] in [place]. Perhaps a CT of the chest should be updated here at [facility]. Kobi luna has been on consultation with biopsies obtained. Discussed directly with Dr. Ely Carrizales who confirms the sample analyzed is consistent with squamous cell carcinoma in situ with no evidence of invasive disease. From an oncologic standpoint, I cannot definitively recommend chemotherapeutics or even combined chemoradiation in this circumstance. I suspect a rebiopsy may confirm invasive diseas e. Certainly continued surveillance is warranted in this gentleman who has well established obviousl y in pulmonary medicine. Perhaps this would be an interesting case to discuss in tumor board to [facility] opinions across all specialists. Without a definitive cancer diagnosis, I cannot make a formal re commendation one way or another. We will continue to follow periodically during his hospital stay an d would be happy to reengage if and when squamous cell carcinoma of the lung is confirmed. I have no thing further to add at this time. Thank you very much for allowing me to participate in the care of this gentleman. Job ID: [id number]
[2021-10-13] MEDS ORDERED: POTASSIUM CHLORIDE PWD 20 MEQ PACK PO ONE (10:00)
--- NOTE | 2021-10-13 10:23 | Nephrology Progress Note ---
Date of Service October 13, 2021 Assessment & Plan Admission and Anticipated Discharge Date Admission Date: October 08, 2021 Subjective Subjective S--No new issues. Had Bronch -possible Sq Cancer. na stable at 132 PHYSICAL EXAMINATION: GENERAL: Elderly white male who appears quite thin built and malnourished. He is in mild respiratory distress even at rest. Awake, alert, oriented x3. HEENT: Mucous membrane is moist. NECK: Supple. No jugular venous distention. CHEST: Bilateral diffuse rhonchi, especially in the right lung. CARDIOVASCULAR: S1 and S2 regular. Soft systolic murmur heard. ABDOMEN: Soft, nontender. EXTREMITIES: Show no edema. LABORATORY TEST: Shows urine osmolality 511, urine sodium 127, serum sodium this AM 132 same as yesterday AM IMAGING DATA: Chest x-ray shows right apical opacity with underlying pleural thickening. No pulmonary congestion. ASSESSMENT AND PLAN: A 71-year-old male with progressive lung disease, which is still under investigation with cavitary pneumonia in the right lung, now admitted with the same problem and was found to have hyponatremia, serum sodium most recently is 126. I have been consulted for hyponatremia. Hyponatremia: Most recent sodium 126. Urine osmolality is very high and is very inappropriate at 511. Urine sodium 127. The patient appears euvolemic. 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 He was drinking a lot of fluid as an outpatient, which totals to more than 120 ounces per day and in fact if you count the protein drinks, it is actually even more. He has been losing weight and has very low solid food intake as an outpatient. RECOMMENDATIONS: 1. Continue fluid restriction of 1200 mL per day. encourage more protein intake 2. Given Na of more than 130 two days in a row will stop urea 3. As long as Na at this level ( > 128) we are good. No need to be more aggressive in Rx this 4. It is not unusual to have SIADH in the setting of chronic lung problems/Lung cancer. . 5 Daily BMP Results & Data ([facility]) Vital Signs (Past 12 Hours) Vital Signs Temp Pulse Resp BP Pulse Ox 10/13/21 07:00 36.7 C 92 H 20 95/58 L 96 10/12/21 22:41 36.8 C 84 18 102/74 96
--- NOTE | 2021-10-13 17:29 | Hospitalist Progress Note ---
Date of Service October 13, 2021 Assessment & Plan (1) Cavitary pneumonia: Plan: Patient is a 71 yr male with H/O moderate persistent asthma, bronchiectasis, GERD, elevated IgE who presents today with SOB and continued sputum production with 3rd admission within this month for RUL cavitary pneumonia. Aspergillus pneumonia-POA Squamous Cell carcinoma in situ-POA -CXR:Right apical opacity with underlying pleural thickening favored to represent underlying mass or scarring. Correlation with history is recommended. If not previously evaluated, CT can be considered. -S/P Bronchoscopy on 10/09/21: Bronchial cultures growing Aspergillus species Bronchial biopsies suggestive of Squamous cell carcinoma in situ --CT Chest at [facility] on 10/03/21:IMPRESSION:No evidence of pulmonary embolism. Cavitated infiltrates in the apical right upper lobe is somewhat further increased from prior. Differential diagnosis includes cavitary pneumonia,tuberculosis, other mycobacterial infection, aspergillosis, less likely cavitated neoplasm. Bronchoscopy with tissue diagnosis is suggested. Other infiltrates scattered in the remainder of the lungs are relatively stable. Development of a few subcentimeter sclerotic foci in the cervicothoracic spine. Sclerotic/osteoblastic metastasis are not excluded. Further evaluation with nuclear medicine bone scan should to be considered. Work up at [facility]: Sputum culture negative for AFB, Cryptococcal antigen negative, BRENDON screen negative, cyclic citrullinated peptide IgG antibody positive, c-ANCA negative, p-ANCA negative, rheumatoid factor 221, serum immunodiffusion studies positive for Aspergillus flavus and fumigatus but negative for niger. Histoplasmosis and blastomycosis labs pending --Prior hospitalist discussed with insurance examiner at [facility], recommends outpatient follow-up Continue Zosyn, voriconazole ID on board --MRI Brain:Motion degraded exam. No acute intracranial abnormality identified. Age-related involutional changes with mild to moderate chronic microvascular ischemic disease. No abnormal enhancement. Will need PET scan eventually Appreciate pulmonology, Oncology input Leukocytosis trending down Duration of antibiotics to be determined by ID Wean off of supplemental oxygen as able Possible small right hydropneumothorax. Repeat chest x-ray showed slight decrease in right hydropneumothorax today (2) Asthma: Plan: Breo Ellipta changed to Anoro Ellipta to limit inhaled corticosteroid use Appreciate pulmonology input (3) Bronchiectasis: Plan: Continue inhaler (4) Hyponatremia: Plan: Likely SIADH Sodium 129>133 Urea discontinued Continue fluid restriction Appreciate Nephrology Input Hypokalemia Replace electrolytes as needed (5) Elevated troponin: Plan: Initial troponin elevated at 0.06. No chest pain or acute ST changes on ECG. (6) Severe protein-energy malnutrition: Plan: Reports 20 lb weight loss in past month per patient. Continue Boost shakes TID, encouraged PO intake Nutrition recs appreciated (7) Generalized anxiety disorder: Plan: Continue Buspar (8) Barretts esophagus: Plan: Following with GI, continue PPI, due for OP EGD in Oct 2021 DVT Px: SQ heparin Code status: FULL CODE Admission and Anticipated Discharge Date Admission Date: October 08, 2021 Subjective Patient is seen and examined at bedside Less cough today No new complaints Feels tired Denies any dyspnea, chest pain, dizziness, nausea, abdominal pain Continue on 3 L supplemental oxygen Review of Systems Review of Systems: All systems reviewed & are unremarkable except as noted in Subjective Physical Exam Physical Exam: Physical Exam: Vitals signs as noted above General Appearance:Thin, frail, no apparent distress Head: normocephalic, Atraumatic Eyes: normal inspection, EOMI Neck: supple, Trachea midline Respiratory/Chest: Decreased breath sounds, CTA, No accessory muscle use Cardiovascular: S1, S2, No murmur Abdomen/GI:Soft, Non tender, Bowel sounds present Extremities/Musculoskeletal:normal inspection, no edema Neurologic/Psych:AAOX3, grossly no focal neurological deficits Skin: normal color, warm Results & Data Results & Data ([facility]) Vital Signs (Past 12 Hours) Vital Signs Temp Pulse Resp BP Pulse Ox 10/13/21 14:00 37.3 C 87 18 98/58 L 97 10/13/21 07:00 36.7 C 92 H 20 95/58 L 96 Laboratory Results Short CBC 10/13/21 Range/Units 07:09 WBC 14.51 H (4.8-10.8) K/uL Hgb 9.7 L (14.0-18.0) g/dL Hct 29.7 L (42-52) % Plt Count 425 H (130-400) K/uL BMP 10/13/21 07:09 Sodium 132 L Potassium 2.9 L Chloride 94 L Carbon Dioxide 29 BUN 32 H Creatinine 1.10 Glucose 116 H Calcium 8.1 L Liver Function 10/13/21 Range/Units 07:09 Total Bilirubin 0.4 (0.2-1.0) mg/dl AST 17 (13-39) U/L ALT 10 (7-52) U/L Alkaline Phosphatase 64 (34-104) U/L Albumin 2.5 L (3.4-5.0) gm/dl (1) Asthma Asthma complication type: with acute exacerbation Asthma persistence: persistent Asthma severity: mild Qualified Code(s): J45.31 - Mild persistent asthma with (acute) exacerbation (2) Bronchiectasis Bronchiectasis type: with acute exacerbation Qualified Code(s): J47.1 - Bronchiectasis with (acute) exacerbation
--- NOTE | 2021-10-13 17:58 | Billing Data ---
Date of Service October 11, 2021 Coding Level of Care Code 79519 Subseq Hosp Care Lvl 2
[2021-10-13] MEDS: POTASSIUM CHLORIDE PWD 20 MEQ PACK PO SCH (20:18)
[2021-10-14] MEDS: SODIUM CHLORIDE 0.9% IV SCH (01:27)
[2021-10-14] MEDS: VORICONAZOLE IV SCH (01:27)
[2021-10-14] MEDS: PIPERACILLIN/TAZOBACTAM 3.375 GM in DEXTROSE 5% 100 ML IV SCH ×3 (03:00→20:38)
[2021-10-14 07:30] LABS: Hematocrit (blood only) 28.5 % (42-52); Hemoglobin 9.2 g/dL (14.0-18.0); Mean Corpuscular Hgb Conc 32.3 g/dL (32-36); Mean Corpuscular Volume 89.9 fL (80-100); Mean Platelet Volume 9.2 fL (7.4-10.4); Platelet Count 416 K/uL (130-400); RDW Coefficient of Variation 13.1 % (11.5-14.5); RDW Standard Deviation 43.4 fL (36.4-46.3); Red Blood Count 3.17 M/uL (4.7-6.1); White Blood Count 10.52 K/uL (4.8-10.8)
[2021-10-14] MEDS: CYANOCOBALAMIN 500 MCG TABLET (VITAMIN B-12) PO SCH (07:50)
[2021-10-14] MEDS: guaiFENesin 600 MG TABCR PO SCH ×2 (07:50→16:11)
[2021-10-14] MEDS: busPIRone 7.5 MG TAB PO SCH ×2 (07:50→20:50)
[2021-10-14] MEDS: FERROUS SULFATE 325 MG TAB PO SCH (07:50)
[2021-10-14] MEDS: POTASSIUM CHLORIDE PWD 20 MEQ PACK PO SCH ×2 (07:51→20:47)
[2021-10-14] MEDS: THIAMINE HCL 100 MG TAB PO SCH (07:51)
[2021-10-14] MEDS: PANTOprazole 40 MG TAB PO SCH (07:51)
[2021-10-14] MEDS: HEPARIN SOD 5,000 UNIT/0.5 ML VIAL SQ SCH ×2 (07:51→20:51)
[2021-10-14] MEDS: UMECLIDINIUM/VILANTEROL 62.5/25MCG 7 PUFFS/INHALER INH SCH (07:52)
[2021-10-14 07:56] LABS: BUN Creatinine Ratio 23.8 (10-20); Creatinine Clr Calc Pharmacy 53.4 ml/min; Est GFR (African American) 86.9 ml/min; Potassium 2.7 mmol/L (3.5-5.1)
[2021-10-14] MEDS ORDERED: SODIUM CHLORIDE 0.9% 500 ML IV ONE (08:31)
[2021-10-14] MEDS ORDERED: POTASSIUM CHLORIDE PWD 20 MEQ PACK PO ONE (08:45)
[2021-10-14] MEDS: POTASSIUM CHLORIDE / WTR 10 MEQ/100 ML PLCT IV SCH ×3 (09:12→11:18)
[2021-10-14] MEDS: LEVALBUTEROL HCL 0.63 MG/3 ML NEB NEB PRN (09:17)
[2021-10-14] MEDS: VORICONAZOLE 200 MG TABLET PO SCH ×2 (11:19→23:52)
--- NOTE | 2021-10-14 15:36 | Hospitalist Progress Note ---
Date of Service October 14, 2021 Assessment & Plan (1) Cavitary pneumonia: Plan: Patient is a 71 yr male with H/O moderate persistent asthma, bronchiectasis, GERD, elevated IgE who presents today with SOB and continued sputum production with 3rd admission within this month for RUL cavitary pneumonia. Aspergillus pneumonia-POA Squamous Cell carcinoma in situ-POA -CXR:Right apical opacity with underlying pleural thickening favored to represent underlying mass or scarring. Correlation with history is recommended. If not previously evaluated, CT can be considered. -S/P Bronchoscopy on 10/09/21: Bronchial cultures growing Aspergillus species Bronchial biopsies suggestive of Squamous cell carcinoma in situ --CT Chest at [facility] on 10/03/21:IMPRESSION:No evidence of pulmonary embolism. Cavitated infiltrates in the apical right upper lobe is somewhat further increased from prior. Differential diagnosis includes cavitary pneumonia,tuberculosis, other mycobacterial infection, aspergillosis, less likely cavitated neoplasm. Bronchoscopy with tissue diagnosis is suggested. Other infiltrates scattered in the remainder of the lungs are relatively stable. Development of a few subcentimeter sclerotic foci in the cervicothoracic spine. Sclerotic/osteoblastic metastasis are not excluded. Further evaluation with nuclear medicine bone scan should to be considered. Work up at [facility]: Sputum culture negative for AFB, Cryptococcal antigen negative, BRENDON screen negative, cyclic citrullinated peptide IgG antibody positive, c-ANCA negative, p-ANCA negative, rheumatoid factor 221, serum immunodiffusion studies positive for Aspergillus flavus and fumigatus but negative for niger. Histoplasmosis and blastomycosis labs pending --Prior hospitalist discussed with packager hand at [facility], recommends outpatient follow-up --Procalcitonin:3.95>>1.57 Continue Zosyn, voriconazole Plan to complete 7-day course of Zosyn. Appreciate ID Input --MRI Brain:Motion degraded exam. No acute intracranial abnormality identified. Age-related involutional changes with mild to moderate chronic microvascular ischemic disease. No abnormal enhancement. Will need PET scan eventually Appreciate pulmonology, Oncology input Leukocytosis normalized Currently saturating low 90s on room air Will need 2 step prior to discharge Possible small right hydropneumothorax. Repeat chest x-ray showed slight decrease in right hydropneumothorax today (2) Asthma: Plan: Breo Ellipta changed to Anoro Ellipta to limit inhaled corticosteroid use Appreciate pulmonology input (3) Bronchiectasis: Plan: Continue inhaler (4) Hyponatremia: Plan: Likely SIADH Sodium 129>133>135 Urea discontinued Continue fluid restriction Appreciate Nephrology Input Hypokalemia Replace electrolytes as needed (5) Elevated troponin: Plan: Initial troponin elevated at 0.06. No chest pain or acute ST changes on ECG. (6) Severe protein-energy malnutrition: Plan: Reports 20 lb weight loss in past month per patient. Continue Boost shakes TID, encouraged PO intake Nutrition recs appreciated (7) Generalized anxiety disorder: Plan: Continue Buspar (8) Barretts esophagus: Plan: Following with GI, continue PPI, due for OP EGD in Oct 2021 DVT Px: SQ heparin Code status: FULL CODE Admission and Anticipated Discharge Date Admission Date: October 08, 2021 Subjective Patient is seen and examined at bedside States feeling better today Still has minimal cough Appetite slowly improving Denies any dyspnea, chest pain, dizziness, nausea, abdominal pain Continue saturating low 90s on room air Review of Systems Review of Systems: All systems reviewed & are unremarkable except as noted in Subjective Physical Exam Physical Exam: Physical Exam: Vitals signs as noted above General Appearance:Thin, frail, no apparent distress Head: normocephalic, Atraumatic Eyes: normal inspection, EOMI Neck: supple, Trachea midline Respiratory/Chest: Decreased breath sounds, CTA, No accessory muscle use Cardiovascular: S1, S2, No murmur Abdomen/GI:Soft, Non tender, Bowel sounds present Extremities/Musculoskeletal:normal inspection, no edema Neurologic/Psych:AAOX3, grossly no focal neurological deficits Skin: normal color, warm Results & Data Results & Data ([facility]) Vital Signs (Past 12 Hours) Vital Signs Temp Pulse Resp BP Pulse Ox 10/14/21 11:29 36.5 C 82 16 93/58 L 90 10/14/21 09:19 77 18 90 10/14/21 07:00 36.7 C 80 18 90/56 L 90 Laboratory Results Short CBC 10/14/21 Range/Units 06:50 WBC 10.52 (4.8-10.8) K/uL Hgb 9.2 L (14.0-18.0) g/dL Hct 28.5 L (42-52) % Plt Count 416 H (130-400) K/uL BMP 10/14/21 06:50 Sodium 135 L Potassium 2.7 L Chloride 96 L Carbon Dioxide 29 BUN 24 H Creatinine 1.01 Glucose 101 H Calcium 8.0 L (1) Asthma Asthma complication type: with acute exacerbation Asthma persistence: persistent Asthma severity: mild Qualified Code(s): J45.31 - Mild persistent asthma with (acute) exacerbation (2) Bronchiectasis Bronchiectasis type: with acute exacerbation Qualified Code(s): J47.1 - Bronchiectasis with (acute) exacerbation
[2021-10-14] MEDS ORDERED: POTASSIUM CHLORIDE PWD 20 MEQ PACK PO SCH (21:00)
[2021-10-15] MEDS: PIPERACILLIN/TAZOBACTAM 3.375 GM in DEXTROSE 5% 100 ML IV SCH ×3 (04:52→20:51)
[2021-10-15 06:26] LABS: Hematocrit (blood only) 27.8 % (42-52); Hemoglobin 8.9 g/dL (14.0-18.0); Mean Corpuscular Volume 90.6 fL (80-100); Mean Platelet Volume 9.4 fL (7.4-10.4); Platelet Count 425 K/uL (130-400); RDW Coefficient of Variation 13.3 % (11.5-14.5); RDW Standard Deviation 43.8 fL (36.4-46.3); Red Blood Count 3.07 M/uL (4.7-6.1); White Blood Count 9.11 K/uL (4.8-10.8)
[2021-10-15 06:45] LABS: BUN Creatinine Ratio 17.7 (10-20); Calcium 7.8 mg/dl (8.5-10.1); Creatinine Clr Calc Pharmacy 56.2 ml/min; Est GFR (African American) 92.4 ml/min; Est GFR (Non-African American) 79.8 ml/min; Magnesium 2.3 mg/dl (1.7-2.4); Potassium 2.7 mmol/L (3.5-5.1)
[2021-10-15] MEDS: CYANOCOBALAMIN 500 MCG TABLET (VITAMIN B-12) PO SCH (08:50)
[2021-10-15] MEDS: busPIRone 7.5 MG TAB PO SCH ×2 (08:50→21:03)
[2021-10-15] MEDS: POTASSIUM CHLORIDE PWD 20 MEQ PACK PO SCH (08:51)
[2021-10-15] MEDS: PANTOprazole 40 MG TAB PO SCH (08:51)
[2021-10-15] MEDS: FERROUS SULFATE 325 MG TAB PO SCH (08:51)
[2021-10-15] MEDS: HEPARIN SOD 5,000 UNIT/0.5 ML VIAL SQ SCH ×2 (08:51→21:07)
[2021-10-15] MEDS: THIAMINE HCL 100 MG TAB PO SCH (08:52)
[2021-10-15] MEDS: UMECLIDINIUM/VILANTEROL 62.5/25MCG 7 PUFFS/INHALER INH SCH (08:52)
[2021-10-15] MEDS: guaiFENesin 600 MG TABCR PO SCH ×2 (08:54→21:04)
[2021-10-15] MEDS: POTASSIUM CHLORIDE / WTR 10 MEQ/100 ML PLCT IV SCH ×3 (09:16→11:32)
--- NOTE | 2021-10-15 09:41 | Nephrology Progress Note ---
Date of Service October 15, 2021 Assessment & Plan (1) Hyponatremia: Plan: Hyponatremia: Most recent sodium 126. Urine osmolality is very high and is very inappropriate at 511. Urine sodium 127. The patient appears euvolemic. 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 He was drinking a lot of fluid as an outpatient, He has been losing weight and has very low solid food intake as an outpatient. - Sodium is normal now, no need for salt tablets or urea. - Replace potassium -needs to be on fluid restriction @ 1.5 lit/day and cut down on fluid intake , increase protein intake- to be educated on discharge. - Nephrorology with sign off Admission and Anticipated Discharge Date Admission Date: October 08, 2021 Subjective Patient is seen and examined at bedside Appetite improved nO new complains Review of Systems Review of Systems: All systems reviewed & are unremarkable except as noted in Subjective Physical Exam Physical Exam: GENERAL- Comforatble. appears malnourished. HEENT: Mucous membrane is moist. NECK: Supple. No jugular venous distention. CHEST: Bilateral diffuse rhonchi, especially in the right lung. CARDIOVASCULAR: S1 and S2 regular. Soft systolic murmur heard. ABDOMEN: Soft, nontender. EXTREMITIES: Show no edema. Results & Data ([facility]) Vital Signs (Past 12 Hours) Vital Signs Temp Pulse Resp BP Pulse Ox 10/15/21 06:49 36.7 C 79 20 93/58 L 93 10/14/21 23:18 36.8 C 88 20 99/55 L 92 Laboratory Results 10/15/21 05:26 10/15/21 05:26
[2021-10-15] MEDS: VORICONAZOLE 200 MG TABLET PO SCH ×2 (11:47→22:33)
[2021-10-15] MEDS: CHLORASEPTIC 1.4% SOLN 180 ML BTL MT PRN (12:50)
--- NOTE | 2021-10-15 16:49 | Hospitalist Progress Note ---
Date of Service October 15, 2021 Assessment & Plan (1) Cavitary pneumonia: Plan: Patient is a 71 yr male with H/O moderate persistent asthma, bronchiectasis, GERD, elevated IgE who presents today with SOB and continued sputum production with 3rd admission within this month for RUL cavitary pneumonia. Aspergillus pneumonia-POA Squamous Cell carcinoma in situ-POA -CXR:Right apical opacity with underlying pleural thickening favored to represent underlying mass or scarring. Correlation with history is recommended. If not previously evaluated, CT can be considered. 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 Cavitated infiltrates in the apical right upper lobe is somewhat further increased from prior. Differential diagnosis includes cavitary pneumonia,tuberculosis, other mycobacterial infection, aspergillosis, less likely cavitated neoplasm. Bronchoscopy with tissue diagnosis is suggested. Other infiltrates scattered in the remainder of the lungs are relatively stable. Development of a few subcentimeter sclerotic foci in the cervicothoracic spine. Sclerotic/osteoblastic metastasis are not excluded. Further evaluation with nuclear medicine bone scan should to be considered. Work up at [facility]: Sputum culture negative for AFB, Cryptococcal antigen negative, BRENDON screen negative, cyclic citrullinated peptide IgG antibody positive, c-ANCA negative, p-ANCA negative, rheumatoid factor 221, serum immunodiffusion studies positive for Aspergillus flavus and fumigatus but negative for niger. Histoplasmosis and blastomycosis labs pending --Prior hospitalist discussed with logistics/shipper at [facility], recommends outpatient follow-up --Procalcitonin:3.95>>1.57 Continue Zosyn, voriconazole Plan to complete 7-day course of Zosyn. Appreciate ID Input --MRI Brain:Motion degraded exam. No acute intracranial abnormality identified. Age-related involutional changes with mild to moderate chronic microvascular ischemic disease. No abnormal enhancement. Will need PET scan eventually Appreciate pulmonology, Oncology input Leukocytosis normalized Currently saturating low 90s on room air Will need 2 step prior to discharge Recheck procalcitonin tomorrow Possible small right hydropneumothorax. Repeat chest x-ray showed slight decrease in right hydropneumothorax today We'll repeat chest x-ray tomorrow (2) Asthma: Plan: Breo Ellipta changed to Anoro Ellipta to limit inhaled corticosteroid use Appreciate pulmonology input (3) Bronchiectasis: Plan: Continue inhaler (4) Hyponatremia: Plan: Likely SIADH Sodium 129>133>136 Urea discontinued Continue fluid restriction: 1.5 L per day Appreciate Nephrology Input Needs follow-up with nephrology upon discharge Hypokalemia Replace electrolytes as needed (5) Elevated troponin: Plan: Initial troponin elevated at 0.06. No chest pain or acute ST changes on ECG. (6) Severe protein-energy malnutrition: Plan: Reports 20 lb weight loss in past month per patient. Continue Boost shakes TID, encouraged PO intake Nutrition recs appreciated (7) Generalized anxiety disorder: Plan: Continue Buspar (8) Barretts esophagus: Plan: Following with GI, continue PPI, due for OP EGD in Oct 2021 DVT Px: SQ heparin Code status: FULL CODE Admission and Anticipated Discharge Date Admission Date: October 08, 2021 Subjective Patient is seen and examined at bedside No significant change from yesterday Denies any dyspnea, chest pain, dizziness, nausea, abdominal pain Persistent cough Afebrile Review of Systems Review of Systems: All systems reviewed & are unremarkable except as noted in Subjective Physical Exam Physical Exam: Physical Exam: Vitals signs as noted above General Appearance:Thin, frail, no apparent distress Head: normocephalic, Atraumatic Eyes: normal inspection, EOMI Neck: supple, Trachea midline Respiratory/Chest: Decreased breath sounds, CTA, No accessory muscle use Cardiovascular: S1, S2, No murmur Abdomen/GI:Soft, Non tender, Bowel sounds present Extremities/Musculoskeletal:normal inspection, no edema Neurologic/Psych:AAOX3, grossly no focal neurological deficits Skin: normal color, warm Results & Data Results & Data ([facility]) Vital Signs (Past 12 Hours) Vital Signs Temp Pulse Resp BP BP Pulse Ox 10/15/21 15:33 36.7 C 67 20 100/52 L 95 10/15/21 06:49 36.7 C 79 20 93/58 L 93 Laboratory Results Short CBC 10/15/21 Range/Units 05:26 WBC 9.11 (4.8-10.8) K/uL Hgb 8.9 L (14.0-18.0) g/dL Hct 27.8 L (42-52) % Plt Count 425 H (130-400) K/uL [facility] 10/15/21 05:26 Sodium 136 Potassium 2.7 L Chloride 98 Carbon Dioxide 31 BUN 17 Creatinine 0.96 Glucose 106 H Calcium 7.8 L (1) Asthma Asthma complication type: with acute exacerbation Asthma persistence: persistent Asthma severity: mild Qualified Code(s): J45.31 - Mild persistent asthma with (acute) exacerbation (2) Bronchiectasis Bronchiectasis type: with acute exacerbation Qualified Code(s): J47.1 - Bronchiectasis with (acute) exacerbation
[2021-10-15] MEDS: POTASSIUM CHLORIDE 20 MEQ/15 ML UDC PO SCH (21:51)
[2021-10-16] MEDS: PIPERACILLIN/TAZOBACTAM 3.375 GM in DEXTROSE 5% 100 ML IV SCH (04:59)
[2021-10-16 06:50] LABS: BUN Creatinine Ratio 12.5 (10-20); Calcium 7.7 mg/dl (8.5-10.1); Creatinine Clr Calc Pharmacy 56.2 ml/min; Est GFR (African American) 92.4 ml/min; Est GFR (Non-African American) 79.8 ml/min; Potassium 3.1 mmol/L (3.5-5.1)
[2021-10-16] MEDS: PANTOprazole 40 MG TAB PO SCH (07:40)
[2021-10-16] MEDS: CYANOCOBALAMIN 500 MCG TABLET (VITAMIN B-12) PO SCH (07:40)
[2021-10-16] MEDS: busPIRone 7.5 MG TAB PO SCH ×2 (07:40→21:19)
[2021-10-16] MEDS: FERROUS SULFATE 325 MG TAB PO SCH (07:40)
[2021-10-16] MEDS: HEPARIN SOD 5,000 UNIT/0.5 ML VIAL SQ SCH ×2 (07:40→21:22)
[2021-10-16] MEDS: THIAMINE HCL 100 MG TAB PO SCH (07:41)
[2021-10-16] MEDS: guaiFENesin 600 MG TABCR PO SCH ×2 (07:41→21:19)
[2021-10-16] MEDS: POTASSIUM CHLORIDE 20 MEQ/15 ML UDC PO SCH ×2 (07:42→21:23)
[2021-10-16] MEDS: UMECLIDINIUM/VILANTEROL 62.5/25MCG 7 PUFFS/INHALER INH SCH (07:42)
--- NOTE | 2021-10-16 08:18 | XRay Report ---
XR chest 1V portable CLINICAL HISTORY: Follow-up right upper lobe airspace opacity. Evaluate for right pleural effusion. COMPARISON STUDY: 10/13/[address] of the chest from 01/02/2016 TECHNIQUE: 1 view of the chest FINDINGS: Single frontal view of the chest demonstrates the cardiomediastinal silhouette to be within normal li mits. Compared to the previous examination, there is no significant interval change in right upper lo be airspace opacity . When compared to the old CT, the patient has extensive bronchiectasis which acc ounts for the lucency seen within the right lower lobe. The left hemithorax is clear. There is no antonio dence for pleural effusion. There is no evidence for vascular congestion. There is no acute osseous p athology. IMPRESSION: 1. No significant interval change in the right upper lobe airspace opacity. Follow-up CT of the chest with contrast is recommended. 2. Evidence for bronchiectasis is also present when compared to the old CT. ACT 112: Negative or not required by law. Electronically signed by: Daljit Daley M.D. 10/16/2021 8:16 AM
[2021-10-16] MEDS: POTASSIUM CHLORIDE / WTR 10 MEQ/100 ML PLCT IV SCH ×2 (09:42→10:54)
--- NOTE | 2021-10-16 10:46 | Communication Note ---
Date of Service: October 16, 2021 Nephrology signed off on this patient. Discharge summary updated as follows: -due to hyponatremia at admission, recommend at hospital discharge: >1.5L fluid limit daily >increase protein intake at hospital discharge >nephrology follow up recommended to assist with chronic hyponatremia 2-4 weeks after hospital discharge with Dr Ellis in [place] (closer to his home) or any physician in [facility] >nephrology nurse at hospital discharge to order bmp weekly until seen in CKD clinic; one time w/ first labs serum osmolality, urine osmolality, rd urine sodium
[2021-10-16] MEDS: VORICONAZOLE 200 MG TABLET PO SCH ×2 (10:54→23:46)
[2021-10-16] MEDS: AMOXICILLIN/CLAVULANATE 875 MG TAB PO SCH (17:22)
--- NOTE | 2021-10-16 17:31 | Hospitalist Progress Note ---
Date of Service October 16, 2021 Assessment & Plan (1) Cavitary pneumonia: Plan: Patient is a 71 yr male with H/O moderate persistent asthma, bronchiectasis, GERD, elevated IgE who presents today with SOB and continued sputum production with 3rd admission within this month for RUL cavitary pneumonia. Aspergillus pneumonia-POA Squamous Cell carcinoma in situ-POA -CXR:Right apical opacity with underlying pleural thickening favored to represent underlying mass or scarring. Correlation with history is recommended. If not previously evaluated, CT can be considered. 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 Cavitated infiltrates in the apical right upper lobe is somewhat further increased from prior. Differential diagnosis includes cavitary pneumonia,tuberculosis, other mycobacterial infection, aspergillosis, less likely cavitated neoplasm. Bronchoscopy with tissue diagnosis is suggested. Other infiltrates scattered in the remainder of the lungs are relatively stable. Development of a few subcentimeter sclerotic foci in the cervicothoracic spine. Sclerotic/osteoblastic metastasis are not excluded. Further evaluation with nuclear medicine bone scan should to be considered. Work up at [facility]: Sputum culture negative for AFB, Cryptococcal antigen negative, BRENDON screen negative, cyclic citrullinated peptide IgG antibody positive, c-ANCA negative, p-ANCA negative, rheumatoid factor 221, serum immunodiffusion studies positive for Aspergillus flavus and fumigatus but negative for niger. Histoplasmosis and blastomycosis labs pending --Prior hospitalist discussed with manager case management at [facility], recommends outpatient follow-up --Procalcitonin:3.95>>1.57 Continue Voriconazole Zosyn>> transition to Augmentin to complete 10-day course of antibiotics Appreciate ID Input --MRI Brain:Motion degraded exam. No acute intracranial abnormality identified. Age-related involutional changes with mild to moderate chronic microvascular ischemic disease. No abnormal enhancement. Will need PET scan eventually Appreciate pulmonology, Oncology input Leukocytosis normalized Currently on 2L supplemental oxygen Will need 2 step prior to discharge Repeat procalcitonin normalized Pulmonary hygiene with flutter, incentive spirometer Possible small right hydropneumothorax. Repeat chest x-ray showed no evidence (2) Asthma: Plan: Breo Ellipta changed to Anoro Ellipta to limit inhaled corticosteroid use Appreciate pulmonology input (3) Bronchiectasis: Plan: Continue inhaler (4) Hyponatremia: Plan: Likely SIADH Sodium 129>133>136 Urea discontinued Continue fluid restriction: 1.5 L per day Appreciate Nephrology Input Needs follow-up with nephrology upon discharge Hypokalemia Replace electrolytes as needed (5) Elevated troponin: Plan: Initial troponin elevated at 0.06. No chest pain or acute ST changes on ECG. (6) Severe protein-energy malnutrition: Plan: Reports 20 lb weight loss in past month per patient. Continue Boost shakes TID, encouraged PO intake Nutrition recs appreciated (7) Generalized anxiety disorder: Plan: Continue Buspar (8) Barretts esophagus: Plan: Following with GI, continue PPI, due for OP EGD in Oct 2021 DVT Px: SQ heparin Code status: FULL CODE Admission and Anticipated Discharge Date Admission Date: October 08, 2021 Subjective Patient is seen and examined at bedside Less cough today Reports dyspnea on exertion Denies any dyspnea, chest pain, dizziness, nausea, abdominal pain Currently on 2 L supplemental oxygen Review of Systems Review of Systems: All systems reviewed & are unremarkable except as noted in Subjective Physical Exam Physical Exam: Physical Exam: Vitals signs as noted above General Appearance:Thin, frail, no apparent distress Head: normocephalic, Atraumatic Eyes: normal inspection, EOMI Neck: supple, Trachea midline Respiratory/Chest: Decreased breath sounds, CTA, No accessory muscle use Cardiovascular: S1, S2, No murmur Abdomen/GI:Soft, Non tender, Bowel sounds present Extremities/Musculoskeletal:normal inspection, no edema Neurologic/Psych:AAOX3, grossly no focal neurological deficits Skin: normal color, warm Results & Data Results & Data ([facility]) Vital Signs (Past 12 Hours) Vital Signs Temp Pulse Resp BP Pulse Ox 10/16/21 16:29 36.7 C 78 16 107/70 97 10/16/21 06:40 36.9 C 72 20 100/57 L 96 Laboratory Results [facility] 10/16/21 06:04 Sodium 136 Potassium 3.1 L Chloride 100 Carbon Dioxide 30 BUN 12 Creatinine 0.96 Glucose 100 H Calcium 7.7 L (1) Asthma Asthma complication type: with acute exacerbation Asthma persistence: persistent Asthma severity: mild Qualified Code(s): J45.31 - Mild persistent asthma with (acute) exacerbation (2) Bronchiectasis Bronchiectasis type: with acute exacerbation Qualified Code(s): J47.1 - Bronchiectasis with (acute) exacerbation
[2021-10-17 07:30] LABS: BUN Creatinine Ratio 13.3 (10-20); Calcium 7.8 mg/dl (8.5-10.1); Est GFR (African American) 99.9 ml/min; Est GFR (Non-African American) 86.2 ml/min; Potassium 3.3 mmol/L (3.5-5.1)
[2021-10-17] MEDS: PANTOprazole 40 MG TAB PO SCH (08:28)
[2021-10-17] MEDS: CYANOCOBALAMIN 500 MCG TABLET (VITAMIN B-12) PO SCH (08:28)
[2021-10-17] MEDS: FERROUS SULFATE 325 MG TAB PO SCH (08:28)
[2021-10-17] MEDS: AMOXICILLIN/CLAVULANATE 875 MG TAB PO SCH (08:28)
[2021-10-17] MEDS: THIAMINE HCL 100 MG TAB PO SCH (08:28)
[2021-10-17] MEDS: busPIRone 7.5 MG TAB PO SCH (08:29)
[2021-10-17] MEDS: guaiFENesin 600 MG TABCR PO SCH (08:29)
[2021-10-17] MEDS: POTASSIUM CHLORIDE 20 MEQ/15 ML UDC PO SCH (08:29)
[2021-10-17] MEDS: HEPARIN SOD 5,000 UNIT/0.5 ML VIAL SQ SCH (08:29)
[2021-10-17] MEDS: UMECLIDINIUM/VILANTEROL 62.5/25MCG 7 PUFFS/INHALER INH SCH (09:44)
[2021-10-17] MEDS: VORICONAZOLE 200 MG TABLET PO SCH (11:17)
--- NOTE | 2021-10-17 12:05 | Hospitalist Progress Note ---
Date of Service October 17, 2021 Assessment & Plan (1) Cavitary pneumonia: Plan: Patient is a 71 yr male with H/O moderate persistent asthma, bronchiectasis, GERD, elevated IgE who presents today with SOB and continued sputum production with 3rd admission within this month for RUL cavitary pneumonia. Aspergillus pneumonia-POA Squamous Cell carcinoma in situ-POA -CXR:Right apical opacity with underlying pleural thickening favored to represent underlying mass or scarring. Correlation with history is recommended. If not previously evaluated, CT can be considered. 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 Cavitated infiltrates in the apical right upper lobe is somewhat further increased from prior. Differential diagnosis includes cavitary pneumonia,tuberculosis, other mycobacterial infection, aspergillosis, less likely cavitated neoplasm. Bronchoscopy with tissue diagnosis is suggested. Other infiltrates scattered in the remainder of the lungs are relatively stable. Development of a few subcentimeter sclerotic foci in the cervicothoracic spine. Sclerotic/osteoblastic metastasis are not excluded. Further evaluation with nuclear medicine bone scan should to be considered. Work up at [facility]: Sputum culture negative for AFB, Cryptococcal antigen negative, BRENDON screen negative, cyclic citrullinated peptide IgG antibody positive, c-ANCA negative, p-ANCA negative, rheumatoid factor 221, serum immunodiffusion studies positive for Aspergillus flavus and fumigatus but negative for niger. 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 No acute intracranial abnormality identified. Age-related involutional changes with mild to moderate chronic microvascular ischemic disease. No abnormal enhancement. Will need PET scan eventually Appreciate pulmonology, Oncology input Leukocytosis normalized Currently on 2L supplemental oxygen Pulmonary hygiene with flutter, incentive spirometer 2 step:Did not qualify for Oxygen Refused Rehab placement and refused home Health Possible small right hydropneumothorax. Repeat chest x-ray showed no evidence (2) Asthma: Plan: Breo Ellipta changed to Anoro Ellipta to limit inhaled corticosteroid use Appreciate pulmonology input (3) Bronchiectasis: Plan: Continue inhaler (4) Hyponatremia: Plan: Likely SIADH Sodium 129>133>136 Urea discontinued Continue fluid restriction: 1.5 L per day Appreciate Nephrology Input Needs follow-up with nephrology upon discharge Hypokalemia Replace electrolytes as needed (5) Elevated troponin: Plan: Initial troponin elevated at 0.06. No chest pain or acute ST changes on ECG. (6) Severe protein-energy malnutrition: Plan: Reports 20 lb weight loss in past month per patient. Continue Boost shakes TID, encouraged PO intake Nutrition recs appreciated (7) Generalized anxiety disorder: Plan: Continue Buspar (8) Barretts esophagus: Plan: Following with GI, continue PPI, due for OP EGD in Oct 2021 DVT Px: SQ heparin Code status: FULL CODE Admission and Anticipated Discharge Date Admission Date: October 08, 2021 Subjective Patient is seen and examined at bedside Cough slowly improving Reports dyspnea on exertion and feels tired Denies any chest pain, dizziness, nausea, abdominal pain Currently on 2 L supplemental oxygen Plan for 2 step today Review of Systems Review of Systems: All systems reviewed & are unremarkable except as noted in Subjective Physical Exam Physical Exam: Physical Exam: Vitals signs as noted above General Appearance:Thin, frail, no apparent distress Head: normocephalic, Atraumatic Eyes: normal inspection, EOMI Neck: supple, Trachea midline Respiratory/Chest: Decreased breath sounds, CTA, No accessory muscle use Cardiovascular: S1, S2, No murmur Abdomen/GI:Soft, Non tender, Bowel sounds present Extremities/Musculoskeletal:normal inspection, no edema Neurologic/Psych:AAOX3, grossly no focal neurological deficits Skin: normal color, warm Results & Data Results & Data ([facility]) Vital Signs (Past 12 Hours) Vital Signs Temp Pulse Resp BP BP Pulse Ox 10/17/21 11:49 36.7 C 86 18 103/59 L 98 10/17/21 07:00 36.5 C 77 18 105/63 98 Laboratory Results [facility] 10/17/21 06:48 Sodium 136 Potassium 3.3 L Chloride 100 Carbon Dioxide 27 BUN 12 Creatinine 0.90 Glucose 86 Calcium 7.8 L (1) Bronchiectasis Bronchiectasis type: with acute exacerbation Qualified Code(s): J47.1 - Bronchiectasis with (acute) exacerbation (2) Asthma Asthma complication type: with acute exacerbation Asthma persistence: persistent Asthma severity: mild Qualified Code(s): J45.31 - Mild persistent asthma with (acute) exacerbation
--- NOTE | 2021-10-17 14:04 | Discharge Summary ---
Date of Service October 17, 2021 Admission HPI Per Admitting Provider This is a 71yo M with a PMH of moderate persistent asthma, bronchiectasis, GERD, elevated IgE who presents today with SOB and continued sputum production. Was admitted twice at [facility] over the past month for RUL pneumonia showing progressive cavitary lesion, discharged home 3 days ago on Augmentin BID. CT chest with con from 10/03/20 showing cavitated infiltrates in the apical right upper lobe is somewhat further increased from prior. No evidence of PE. Patient was seen by pulm service there and Dr. Ramírez was suspicious of a non-bacterial pneumonia or non-infectious PNA, with patient at risk for mycoplasma infection such as tuberculosis or AFB, fungal infections including cryptococcus, blastomycosis or histoplasmosis along with inflammatory conditions such as ANCA vasculitis or other inflammatory conditions such as lupus/rheumatoid arthritis. Bronchoscopy with tissue diagnosis suggested but not performed during admission until TB ruled out. No risk factors such as previous TB, travel or incarceration. Resulting lab work from recent admission show negative cryptococcal ag, with histoplasmosis and blastomycosis labs still pending. Preliminary AFB from 10/05 and 10/07 negative- due for one more. Procal negative, lung culture with normal larry. ANCA, BRENDON negative but CCP and RF positive. [place] that rheum levels may be reactive in setting of lung infection. 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 Treated with fluid restriction of 1.5 L and urea 15g BID. Was discharged home from [facility] 3 days ago and started to feel worse again yesterday morning with increased SOB, green sputum production, chest tightness and intermittent wheezing. Denies any fever, chills, CP, hemoptysis. Continues to have poor appetite and endorses 20 pound weight loss in the past month. Has been drinking protein shakes 4-5x/day. No dysuria, diarrhea or constipation. Admission Exam Per Admitting Provider General: Thin man, no acute distress Eyes: PERRL, conjunctivae normal, not pale, anicteric sclerae, EOM intact bilate rally ENMT: External ear and nose normal, oropharynx normal Respiratory: Normal respiratory effort, no respiratory distress, cough, transmitted sounds in right upper lobe, scattered rhonchi. 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 Hyponatremia Hypokalemia Severe protein-energy malnutrition Discharge Data Allergies Allergy/AdvReac Type Severity Reaction Status Date / Time No Known Allergies Allergy Unverified 10/08/21 18:40 Consultations 10/08/21 14:35 ED Decision to Admit Stat 10/08/21 16:04 Consult Nephrology Routine Consult Pulmonology Routine 10/10/21 13:54 Consult Infectious Diseases Routine 10/12/21 08:10 Consult Oncology Routine Procedures Performed Operation Date: 10/09/21 12:00 Actual Procedures p Bronchoscopy - Tristin Worley MD Ordered Studies 10/11/21 15:45 MR brain wo/w con Routine Hospital Course (1) Cavitary pneumonia: Patient is a 71 yr male with H/O moderate persistent asthma, bronch iectasis, GERD, elevated IgE who presents today with SOB and continued sputum production with 3rd admission within this month for RUL cavitary pneumonia. Aspergillus pneumonia-POA Squamous Cell carcinoma in situ-POA -CXR:Right apical opacity with underlying pleural thickening favored to represent underlying mass or scarring. Correlation with history is recommended. If not previously evaluated, CT can be considered. -S/P Bronchoscopy on 10/09/21: Bronchial cultures growing Aspergillus species Bronchial biopsies suggestive of Squamous cell carcinoma in situ --CT Chest at [facility] on 10/03/21:IMPRESSION:No evidence of pulmonary embolism. Cavitated infiltrates in the apical right upper lobe is somewhat further i ncreased from prior. Differential diagnosis includes cavitary pneumonia,tuberculosis, other mycobacterial infection, aspergillosis, less likely cavitated neoplasm. Bronchoscopy with tissue diagnosis is suggested. Other infiltrates scattered in the remainder of the lungs are relatively stable. Development of a few subcentimeter sclerotic foci in the cervicothoracic spine. Sclerotic/osteoblastic metastasis are not excluded. Further evaluation with nuclear medicine bone scan should to be considered. Work up at [facility]: Sputum culture negative for AFB, Cryptococcal antigen negative, BRENDON screen negative, cyclic citrullinated peptide IgG antibody positive, c-ANCA negative, p-ANCA negative, rheumatoid factor 221, serum immunodiffusion studies positive for Aspergillus flavus and fumigatus but negative for niger. Histoplasmosis and blastomycosis labs pending --Prior hospitalist discussed with after school program director at [facility], recommends outpatient follow-up --Procalcitonin:3.95>>1.57>0.49 Continue Voriconazole until follow up with ID as outpatient Zosyn>> transition to Augmentin to complete 10-day course of antibiotics Appreciate ID Input --MRI Brain:Motion degraded exam. No acute intracranial abnormality identified. Age-related involutional changes with mild to moderate chronic microvascular ischemic disease. No abnormal enhancement. Will need PET scan eventually Appreciate pulmonology, Oncology input Leukocytosis normalized Currently on 2L supplemental oxygen Pulmonary hygiene with flutter, incentive spirometer 2 step:Did not qualify for Oxygen Patient prefers to use oxygen as needed. Advised to monitor Oxygen Sats using Pulse Oximeter and use oxygen only if needed Refused Rehab placement and refused home Health Possible small right hydropneumothorax. 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 No chest pain or acute ST changes on ECG. (6) Severe protein-energy malnutrition: Reports 20 lb weight loss in past month per patient. 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 Hyponatremia Hypokalemia Severe protein-energy malnutrition Activity: Per Instructions section Exercise/Sports: Gradually increase as tolerated Non-emergency contact: Primary Care Provider, Specialist, Plastic [employer] Insulation Supervisor and Oncologist Call non-emergency contact if: you have any medication questions, your symptoms worsen, your pain is concerning for you and you have a fever Follow-up/Referrals: Stef Love MD [Physician] - (Date & Time 11/07/2021 11:00 AM Provider Stef Love MD Department Infectious Disease [facility] ) Rayne Martinez PA-C [Outside Practitioners] - (Date & Time 10/24/2021 10:40 AM Provider Rayne Martinez PA-C Department [facility] ([place], [place]) ) Regan Ellis MD [Physician] - (Date & Time 10/31/2021 9:00 AM Provider Regan Ellis MD Department Nephrology 2nd [facility] [place] ) Diet: Regular Fluids: 1500ml (6 cups) Addtl Attending Provider Instructions: Follow-up with your primary care physician Rayne Martinez PA-C on 10/24/2021 10:40 AM Follow-up with your bankruptcy manager Dr.Jawed Ellis on 10/31/2021 9:00 AM Follow-up with your oncologist in 2 weeks: Please call for appointment Follow-up with your infectious disease specialist Dr.Stanley Love on 11/07/2021 11:00 AM as scheduled Seek immediate medical attention if your symptoms reoccur or worsen Please take all medications as instructed on discharge list below. Please call if you have any questions or problems. You can reach a [facility] hospitalist on duty at [facility] 24 hours a day by calling [phone] Baron Tray Line Supervisor Provider Instructions: -due to hyponatremia at admission, recommend at hospital discharge: >1.5L fluid limit daily >increase protein intake at hospital discharge >nephrology follow up recommended to assist with chronic hyponatremia 2-4 weeks after hospital discharge with Dr Ellis in [place] (closer to his home) or any [place] [facility] [place] >nephrology nurse at hospital discharge to order bmp weekly until seen in CKD clinic; one time w/ first labs serum osmolality, urine osmolality, rd urine sodium Pending Studies at Discharge: Yes Studies:: Serological Test: for Legionella Stand-Alone Forms: [facility] [employer]pir[employer], Smoking Cessation Medications and DC Order Prescriptions: New amoxicillin-pot clavulanate [Augmentin] 875-125 mg Tablet 1 tab PO BIDM Qty: 3 RF: 0 voriconazole [Vfend] 200 mg Tablet 200 mg PO Q12H Qty: 60 RF: 0 Anoro Ellipta 62.5-25 mcg/actuation Blister With Device 1 puff inhalation DAILY 30 Days Qty: 1 RF: 1 benzonatate 100 mg Capsule 100 mg PO TID PRN (Reason: cough) Qty: 15 RF: 0 Continued cyanocobalamin (vitamin B-12) [Vitamin B-12] 1,000 mcg Tablet 1,000 mcg PO DAILY RF: 0 ferrous sulfate 325 mg (65 mg iron) Tablet 325 mg PO DAILY RF: 0 magnesium 100 mg Tablet 100 mg PO DAILY RF: 0 buspirone 7.5 mg tablet 7.5 mg PO BID RF: 0 omeprazole 20 mg capsule,delayed release(DR/EC) 20 mg PO DAILY RF: 0 thiamine HCl (vitamin B1) 100 mg Tablet 100 mg PO DAILY RF: 0 Changed potassium chloride [Klor-Con M10] 10 mEq tablet,ER particles/crystals 20 meq PO BID Qty: 30 RF: 0 Discontinued amoxicillin-pot clavulanate 875-125 mg tablet 1 tab PO BID RF: 0 Breo Ellipta 200-25 mcg/dose blister with device 1 inh INHALATION DAILY RF: 0 Ure-Na 15 gram Powder In Packet 1 packet PO BID RF: 0 Discharge Orders: Discharge Order (Routine); Ordered 10/17/21 Ordered By: Arnoldo Mcgowan Admission Data Admit Date/Time: 10/08/21 15:59 Attending Provider: Arnoldo Mcgowan Admit Provider: Miladis Graham I. Primary Care Provider: PCP,NO Other Providers: Miladis Graham I. ; Tristin Worley ; Ernst Andersen ; Sam Escobar ; Paula Loomis ; Stef Love I. ; Diego Barcenas II ; Danuta Rahman ; Kade Young ; Rober Adrian ; Marco Antonio Park V.
[2021-10-23 10:26] LABS: Legionella Culture Source BW RIGHT UPPER LOBE; Source BW RIGHT UPPER LOBE
== END 2021-10-17 16:51 | disposition home or self-care (01) | DRG 853 ==
LOC: ED 11:54 → SUATTDRO 15:59 → EDINP 15:59 → 2N 18:20 → 3E 10-17 11:43